=== PATIENT | female | born 1955 | race Caucasian/White ===

== ENCOUNTER → 2017-04-13 18:17 | Outpatient (CLI) | payer BC, SELFPAY ==
[2017-04-16 14:24] LABS: HPV APTIMA, High Risk Negative (Negative)
== END ==
PROVIDERS: Family Provider Family Medicine; PCP Family Medicine; Visit Provider Nurse Practitioner Women's Health
DX: Z12.4 Encounter for screening for malignant neoplasm of cervix (principal)
CPT/HCPCS: 88175; G0145

== ENCOUNTER → 2017-06-29 17:30 | Outpatient (CLI) | payer BC, SELFPAY ==
--- NOTE | 2017-06-29 17:31 | BI_ITS ---
MAMMOGRAPHY - BILATERAL SCREENING REASON FOR EXAM: Female, 61 years old. Routine annual screening examination. PERTINENT HISTORY: Remote left stereotactic breast biopsy. TECHNIQUE: Digital bilateral breast pio (3D mammographic acquisition) in the CC and MLO projections. 2-D mediolateral oblique (MLO) and craniocaudad (CC) views of both breasts were obtained. CAD: Full Field Digital Mammography with Computer Added Detection was performed. COMPARISON: Comparison is made with prior outside examination dated April 20, 2016. FINDINGS: Breast Composition: There are scattered areas of fibroglandular density. There are no dominant masses or suspicious calcifications. No other significant abnormalities are identified. There has been no significant change since the prior study. BI/SCREENING MAMM (CAD), BILAT IMPRESSION: Stable bilateral screening mammogram. Yearly follow-up mammogram recommended. (A) ASSESSMENT CATEGORY: BIRADS Category 1: Negative. A letter regarding these results will be sent to the patient by the facility within 30 days. Approximately 10% of breast cancers are not detected by mammography. A normal mammogram should not delay biopsy of a clinically suspicious abnormality. [id number] Electronically Signed: Konstantin Person MD at 8:14 EDT Tel [phone], Service support ,
== END ==
PROVIDERS: Family Provider Family Medicine; PCP Family Medicine; Visit Provider Nurse Practitioner Women's Health
DX: Z12.31 Encounter for screening mammogram for malignant neoplasm of breast (principal)
CPT/HCPCS: 77063; 77067

== ENCOUNTER → 2018-07-25 | Outpatient (CLI) | payer BC, SELFPAY ==
[2018-07-06 16:02] VITALS: BMI 27.4
--- NOTE | 2018-07-25 16:30 | BI_ITS ---
MAMMOGRAPHY - BILATERAL SCREENING REASON FOR EXAM: Female, 62 years old. Routine annual screening examination. PERTINENT HISTORY: Non-contributory. Remote left stereotactic breast biopsy. TECHNIQUE: Digital bilateral breast miguel (3D mammographic acquisition) in the CC and MLO projections. 2-D mediolateral oblique (MLO) and craniocaudad (CC) views of both breasts were obtained. CAD: Full Field Digital Mammography with Computer Added Detection was performed. COMPARISON: Comparison is made with prior study dated June 29, 2017 and June 20, 2016. FINDINGS: Breast Composition: The breasts are heterogeneously dense, which may obscure small masses. There are no dominant masses or suspicious calcifications. No other significant abnormalities are identified. BI/SCREEN MAMM (CAD) W/MIGUEL BILAT IMPRESSION: Stable bilateral screening mammogram. Yearly follow-up mammogram recommended. (A) ASSESSMENT CATEGORY: BIRADS Category 1: Negative. A letter regarding these results will be sent to the patient by the facility within 30 days. Approximately 10% of breast cancers are not detected by mammography. A normal mammogram should not delay biopsy of a clinically suspicious abnormality. [id number] Electronically Signed: Konstantin Person, at 8:47 EDT , Service support ,
== END | disposition home or self-care (01) ==
LOC: OPBI 16:28
PROVIDERS: Family Provider Family Medicine; PCP Family Medicine; Referring Provider Nurse Practitioner Women's Health; Visit Provider Nurse Practitioner Women's Health
DX: Z12.31 Encounter for screening mammogram for malignant neoplasm of breast (principal)
CPT/HCPCS: 77063; 77067

== ENCOUNTER → 2018-11-28 | Outpatient (CLI) | payer BC, SELFPAY ==
[2018-07-06 16:02] VITALS: BMI 27.4
[2018-11-28 10:35] LABS: Anion Gap 7 (5-15); BUN 12 mg/dL (7-18); Calcium,Total 9.1 mg/dL (8.5-10.1); Chloride 101 mmol/L (98-107); EST Glomerular Filtration Rate 89 mL/min (>60); Est Glom Filt Rate - Afr Amer 107 mL/min (>60); Glucose 99 mg/dL (74-106); Potassium 3.4 mmol/L (3.5-5.1); Sodium Level 140 mmol/L (136-145); Thyroid Stim Hormone (TSH) 2.86 uIU/mL (0.358-3.74)
== END | disposition home or self-care (01) ==
LOC: MTLAB 08:27
PROVIDERS: Family Provider Family Medicine; PCP Family Medicine; Referring Provider Family Medicine; Visit Provider Family Medicine
DX: I10 Essential (primary) hypertension (principal); E03.9 Hypothyroidism, unspecified
CPT/HCPCS: 36415; 80048; 84443

== ENCOUNTER → 2019-07-27 16:07 | Outpatient (CLI) | payer BC, SELFPAY ==
[2018-07-06 16:02] VITALS: BMI 27.4
[2019-07-18 15:04] VITALS: BMI 27.4
--- NOTE | 2019-07-27 16:08 | BI_ITS ---
MAMMOGRAPHY - BILATERAL SCREENING REASON FOR EXAM: Female, 63 years old. Routine annual screening examination. PERTINENT HISTORY: Non-contributory. Remote left stereotactic breast biopsy. TECHNIQUE: Digital bilateral breast miguel (3D mammographic acquisition) in the CC and MLO projections. 2-D mediolateral oblique (MLO) and craniocaudad (CC) views of both breasts were obtained. CAD: Full Field Digital Mammography with Computer Added Detection was performed. COMPARISON: Comparison is made with prior study dated 03/27/2018 and June 29, 2017. FINDINGS: Breast Composition: The breasts are heterogeneously dense, which may obscure small masses. There are no dominant masses or suspicious calcifications. No other significant abnormalities are identified. There has been no significant change since the prior study. BI/SCREEN MAMM (CAD) W/MIGUEL BILAT IMPRESSION: Stable bilateral screening mammogram. Yearly follow-up mammogram recommended. (A) ASSESSMENT CATEGORY: BIRADS Category 2: Benign. A letter regarding these results will be sent to the patient by the facility within 30 days. Approximately 10% of breast cancers are not detected by mammography. A normal mammogram should not delay biopsy of a clinically suspicious abnormality. [id number] Electronically Signed: Konstantin Person, at 8:41 EDT , Service support ,
== END ==
PROVIDERS: Family Provider Family Medicine; PCP Family Medicine; Referring Provider Nurse Practitioner Women's Health; Visit Provider Nurse Practitioner Women's Health
DX: Z12.31 Encounter for screening mammogram for malignant neoplasm of breast (principal)
CPT/HCPCS: 77063; 77067

== ENCOUNTER → 2019-08-14 16:22 | Outpatient (CLI) | payer BC, SELFPAY ==
[2019-07-18 15:04] VITALS: BMI 27.4
[2019-08-14 18:28] LABS: AST(SGOT) 15 U/L (15-37); Alanine Aminotransfer ALT/SGPT 20 U/L (13-56); Albumin, Serum 3.6 g/dL (3.2-5.0); Alkaline Phosphatase 76 U/L (45-117); Anion Gap 7 (5-15); BUN 12 mg/dL (7-18); BUN/Creat Ratio 15.8 RATIO (10-20); Calcium,Total 8.5 mg/dL (8.5-10.1); Chloride 97 mmol/L (98-107); Cholesterol 201 mg/dL (200); Creatinine, Serum 0.76 mg/dL (0.55-1.02); EST Glomerular Filtration Rate 81 mL/min (>60); Est Glom Filt Rate - Afr Amer 98 mL/min (>60); Globulin 3.5 g/dL (2.2-4.2); Glucose 124 mg/dL (74-106); High Density Lipoprotein 43 mg/dL; Potassium 3.1 mmol/L (3.5-5.1); Protein, Total 7.1 g/dL (6.4-8.2); Sodium Level 135 mmol/L (136-145); Thyroid Stim Hormone (TSH) 2.78 uIU/mL (0.358-3.74); Triglycerides 284 mg/dL; Very Low Density Lipoprotein 57 mg/dL (5-40)
== END ==
PROVIDERS: PCP Family Medicine; Referring Provider Family Medicine; Visit Provider Family Medicine
DX: I10 Essential (primary) hypertension (principal); E03.9 Hypothyroidism, unspecified
CPT/HCPCS: 36415; 80053; 80061; 84443

== ENCOUNTER → 2019-09-04 16:46 | Outpatient (CLI) | payer BC, SELFPAY ==
[2019-07-18 15:04] VITALS: BMI 27.4
[2019-09-04 18:26] LABS: Anion Gap 6 (5-15); BUN 12 mg/dL (7-18); BUN/Creat Ratio 18.3 RATIO (10-20); Calcium,Total 8.8 mg/dL (8.5-10.1); Chloride 99 mmol/L (98-107); Creatinine, Serum 0.65 mg/dL (0.55-1.02); EST Glomerular Filtration Rate 97 mL/min (>60); Est Glom Filt Rate - Afr Amer 117 mL/min (>60); Glucose 107 mg/dL (74-106); Potassium 3.3 mmol/L (3.5-5.1); Sodium Level 137 mmol/L (136-145)
== END ==
PROVIDERS: PCP Family Medicine; Referring Provider Family Medicine; Visit Provider Family Medicine
DX: E87.6 Hypokalemia (principal)
CPT/HCPCS: 36415; 80048

== ENCOUNTER → 2019-11-16 10:54 | Outpatient (CLI) | payer BC, SELFPAY ==
[2019-07-18 15:04] VITALS: BMI 27.4
== END ==
LOC: MFPLAB 10:55 → LABSPEC 10:57
PROVIDERS: PCP Family Medicine; Referring Provider Family Medicine; Visit Provider Family Medicine
DX: Z20.828 Contact with and (suspected) exposure to other viral communicable diseases (principal)
CPT/HCPCS: 87635; U0003

== ENCOUNTER → 2020-02-24 08:09 | Outpatient (CLI) | payer BC, SELFPAY ==
[2019-07-18 15:04] VITALS: BMI 27.4
[2020-02-24 09:39] LABS: AST(SGOT) 18 U/L (15-37); Alanine Aminotransfer ALT/SGPT 19 U/L (13-56); Albumin, Serum 3.6 g/dL (3.2-5.0); Alkaline Phosphatase 103 U/L (45-117); Anion Gap 4 (5-15); BUN 11 mg/dL (7-18); BUN/Creat Ratio 14.3 RATIO (10-20); Calcium,Total 8.8 mg/dL (8.5-10.1); Chloride 102 mmol/L (98-107); Cholesterol 175 mg/dL (200); Creatinine, Serum 0.77 mg/dL (0.55-1.02); EST Glomerular Filtration Rate 80 mL/min (>60); Est Glom Filt Rate - Afr Amer 97 mL/min (>60); Globulin 3.7 g/dL (2.2-4.2); Glucose 95 mg/dL (74-106); High Density Lipoprotein 54 mg/dL; Potassium 3.4 mmol/L (3.5-5.1); Protein, Total 7.3 g/dL (6.4-8.2); Sodium Level 138 mmol/L (136-145); Thyroid Stim Hormone (TSH) 3.14 uIU/mL (0.358-3.74); Triglycerides 130 mg/dL; Very Low Density Lipoprotein 26 mg/dL (5-40)
== END ==
PROVIDERS: PCP Family Medicine; Referring Provider Family Medicine; Visit Provider Family Medicine
DX: I10 Essential (primary) hypertension (principal); E03.9 Hypothyroidism, unspecified
CPT/HCPCS: 36415; 80053; 80061; 84443

== ENCOUNTER → 2020-08-16 07:45 | Outpatient (CLI) | payer BC, SELFPAY ==
[2020-07-31 15:29] VITALS: BMI 27.6
--- NOTE | 2020-08-15 16:30 | BI_ITS ---
MAMMOGRAPHY - BILATERAL SCREENING REASON FOR EXAM: Female, 64 years old. Routine annual screening examination. PERTINENT HISTORY: Non-contributory. Remote left stereotactic breast biopsy. TECHNIQUE: Digital bilateral breast miguel (3D mammographic acquisition) in the CC and MLO projections. 2-D mediolateral oblique (MLO) and craniocaudad (CC) views of both breasts were obtained. CAD: Full Field Digital Mammography with Computer Added Detection was performed. COMPARISON: Comparison is made with prior examination of 07/27/2019 and 07/25/2018. FINDINGS: Breast Composition: The breasts are heterogeneously dense, which may obscure small masses. There are no dominant masses or suspicious calcifications. No other significant abnormalities are identified. There has been no significant change since the prior study. BI/SCRN MAMM (CAD)W/MIGUEL BILAT IMPRESSION: Stable bilateral screening mammogram. Yearly follow-up mammogram recommended. (A) ASSESSMENT CATEGORY: BIRADS Category 1: Negative. A letter regarding these results will be sent to the patient by the facility within 30 days. Approximately 10% of breast cancers are not detected by mammography. A normal mammogram should not delay biopsy of a clinically suspicious abnormality. [id number] Electronically Signed: Konstantin Person MD at 8:14 EDT , Service support ,
== END ==
PROVIDERS: PCP Family Medicine; Referring Provider Nurse Practitioner Women's Health; Visit Provider Nurse Practitioner Women's Health
DX: Z12.31 Encounter for screening mammogram for malignant neoplasm of breast (principal)
CPT/HCPCS: 77063; 77067

== ENCOUNTER 2021-04-05 07:52 | Outpatient (CLI) | payer BC, SELFPAY ==
[2021-04-05 08:42] LABS: Absolute Lymphocyte Count 0.82 X10^3/uL (0.83-4.51); Basophil# 0.04 X10^3/uL; Eosinophil# 0.04 X10^3/uL; Hematocrit 36.5 % (37-47); Hemoglobin 12.4 g/dL (12.0-15.0); Lymphocyte # 0.82 X10^3/ul (0.83-4.51); Lymphocyte % 19.5 % (19-41); Mean Corpuscular Volume 85.3 fL (81-99); Mean Platelet Vol. 9.6 fl (6.2-12.0); Monocyte# 0.28 X10^3/uL; Monocyte% 6.7 % (0-10); NRBC Flagged by Analyzer 0 % (0-5); Neutrophil # 3.02 X10^3/uL (2.7-7.7); Neutrophil % 71.6 % (47-70); Platelet Count 235 K/mm3 (150-450); RBC Distribution Width CV 12.2 % (11.6-14.6); RBC Distribution Width SD 37.9 fl (35.1-43.9); Red Blood Count 4.28 M/mm3 (4.2-5.4); White Blood Count 4.2 K/mm3 (4.4-11.0)
[2021-04-05 09:36] LABS: ALB/GLOB Ratio 1.1 RATIO (0.9-2.4); AST(SGOT) 12 U/L (15-37); Alanine Aminotransfer ALT/SGPT 16 U/L (13-56); Albumin, Serum 3.7 g/dL (3.2-5.0); Alkaline Phosphatase 71 U/L (45-117); Anion Gap 5 (5-15); BUN 16 mg/dL (7-18); BUN/Creat Ratio 21.4 RATIO (10-20); Chloride 101 mmol/L (98-107); Cholesterol 189 mg/dL (200); Creatinine, Serum 0.75 mg/dL (0.55-1.02); EST Glomerular Filtration Rate 82 mL/min (>60); Est Glom Filt Rate - Afr Amer 99 mL/min (>60); Globulin 3.3 g/dL (2.2-4.2); Glucose 104 mg/dL (74-106); High Density Lipoprotein 73 mg/dL; Potassium 3.5 mmol/L (3.5-5.1); Sodium Level 135 mmol/L (136-145); Thyroid Stim Hormone (TSH) 2.98 uIU/mL (0.358-3.74); Triglycerides 68 mg/dL; Very Low Density Lipoprotein 14 mg/dL (5-40)
== END 2021-04-05 23:59 | disposition home or self-care (01) ==
LOC: LAB 07:55
PROVIDERS: PCP Registered Nurse; Referring Provider Registered Nurse; Visit Provider Registered Nurse
DX: I10 Essential (primary) hypertension (principal)
CPT/HCPCS: 36415; 80053; 80061; 84443; 85025

== ENCOUNTER → 2021-08-19 | Outpatient (CLI) | payer BC, SELFPAY ==
--- NOTE | 2021-08-19 16:25 | BI_ITS ---
MAMMOGRAPHY - BILATERAL SCREENING REASON FOR EXAM: Female, 65 years old. Routine annual screening examination. PERTINENT HISTORY: Non-contributory. History of prior left stereotactic breast biopsy. TECHNIQUE: Digital bilateral breast miguel (3D mammographic acquisition) in the CC and MLO projections. 2-D mediolateral oblique (MLO) and craniocaudad (CC) views of both breasts were obtained. CAD: Full Field Digital Mammography with Computer Added Detection was performed. COMPARISON: Comparison is made with prior study dated 08/15/2020 and 07/27/2019. FINDINGS: Breast Composition: The breasts are heterogeneously dense, which may obscure small masses. There are no dominant masses or suspicious calcifications. No other significant abnormalities are identified. There has been no significant change since the prior study. BI/SCRN MAMM (CAD)W/MIGUEL BILAT IMPRESSION: Stable bilateral screening mammogram. Yearly follow-up mammogram recommended. (A) ASSESSMENT CATEGORY: BIRADS Category 1: Negative. A letter regarding these results will be sent to the patient by the facility within 30 days. Approximately 10% of breast cancers are not detected by mammography. A normal mammogram should not delay biopsy of a clinically suspicious abnormality. [id number] Electronically Signed: Konstantin Person MD at 8:31 EDT ,
== END | disposition home or self-care (01) ==
LOC: OPBI 08-20 06:53
PROVIDERS: PCP Registered Nurse; Referring Provider Nurse Practitioner Women's Health; Visit Provider Nurse Practitioner Women's Health
DX: Z12.31 Encounter for screening mammogram for malignant neoplasm of breast (principal)
CPT/HCPCS: 77063; 77067

== ENCOUNTER → 2021-08-27 | Outpatient (CLI) | payer BC, SELFPAY ==
--- NOTE | 2021-08-27 15:57 | US_ITS ---
EXAM: US PELVIS TRANSVAGINAL AND US DUPLEX ARTERIAL/VENOUS OF THE PELVIS, COMPLETE CLINICAL INDICATION: cancer screening TECHNIQUE: Transvaginal pelvic ultrasound was performed with grayscale imaging. Transvaginal imaging was used for better evaluation of the endometrium and adnexa. Real-time duplex ultrasound scan of the arterial and venous flow of the pelvis with color Doppler flow and spectral waveform analysis. This report was created using [employer] report generation technology. COMPARISON: None. FINDINGS: UTERUS/CERVIX: The uterus measures 5.6 x 4.9 x 4.5 cm. The endometrial stripe measures 0.5 cm in thickness which is abnormal for patient''s age. Slight amount of fluid in the endometrial cavity. The uterus is retroverted. Small heterogeneous intramural mass measuring 1.8 x 1.8 x 1.7 cm in the fundus the uterus. RIGHT OVARY: Unremarkable. There is normal arterial inflow and venous outflow present in the right ovary. The right ovary measures 2.5 x 1.6 x 1.1 cm. LEFT OVARY: Unremarkable. There is normal arterial inflow and venous outflow present in the left ovary. The left ovary measures 2.9 x 1.5 x 0.9 cm. FREE FLUID: None. BLADDER: Empty bladder which cannot be evaluated with this probe. US/Transvaginal Non- IMPRESSION: 1. The uterus measures 5.6 x 4.9 x 4.5 cm. The endometrial stripe measures 0.5 cm in thickness which is abnormal for patient''s age. Findings could be due to endometrial hyperplasia or less likely endometrial cancer. Consider gynecology consultation. 2. Small intramural leiomyoma measuring 1.8 x 1.8 x 1.7 cm in the fundus of the uterus. 3. Slight fluid in the endometrial cavity. Electronically Signed: Chris Ibanez MD at 6:40 EDT ,
--- NOTE | 2021-08-27 15:57 | US_ITS ---
EXAM: US PELVIS TRANSVAGINAL AND US DUPLEX ARTERIAL/VENOUS OF THE PELVIS, COMPLETE CLINICAL INDICATION: cancer screening TECHNIQUE: Transvaginal pelvic ultrasound was performed with grayscale imaging. Transvaginal imaging was used for better evaluation of the endometrium and adnexa. Real-time duplex ultrasound scan of the arterial and venous flow of the pelvis with color Doppler flow and spectral waveform analysis. This report was created using [employer] report generation technology. COMPARISON: None. FINDINGS: UTERUS/CERVIX: The uterus measures 5.6 x 4.9 x 4.5 cm. The endometrial stripe measures 0.5 cm in thickness which is abnormal for patient''s age. Slight amount of fluid in the endometrial cavity. The uterus is retroverted. Small heterogeneous intramural mass measuring 1.8 x 1.8 x 1.7 cm in the fundus the uterus. RIGHT OVARY: Unremarkable. There is normal arterial inflow and venous outflow present in the right ovary. The right ovary measures 2.5 x 1.6 x 1.1 cm. LEFT OVARY: Unremarkable. There is normal arterial inflow and venous outflow present in the left ovary. The left ovary measures 2.9 x 1.5 x 0.9 cm. FREE FLUID: None. BLADDER: Empty bladder which cannot be evaluated with this probe. US/Pelvic (Non ) IMPRESSION: 1. The uterus measures 5.6 x 4.9 x 4.5 cm. The endometrial stripe measures 0.5 cm in thickness which is abnormal for patient''s age. Findings could be due to endometrial hyperplasia or less likely endometrial cancer. Consider gynecology consultation. 2. Small intramural leiomyoma measuring 1.8 x 1.8 x 1.7 cm in the fundus of the uterus. 3. Slight fluid in the endometrial cavity. Electronically Signed: Chris Ibanze MD at 6:40 EDT ,
== END | disposition home or self-care (01) ==
PROVIDERS: PCP Registered Nurse; Referring Provider Nurse Practitioner Women's Health; Visit Provider Nurse Practitioner Women's Health
DX: Z12.89 Encounter for screening for malignant neoplasm of other sites (principal); Z80.9 Family history of malignant neoplasm, unspecified
CPT/HCPCS: 76830; 76856

== ENCOUNTER → 2021-09-04 | Outpatient (CLI) | payer BC, SELFPAY ==
--- NOTE | 2021-09-04 11:00 | EMB_PTH ---
PATIENT: FRAN SHEARER LOC: [facility] U#:[id number] AGE/SX: 66/F ROOM: RE09/04/[address]: DANYA Cross : 1955 BED: DIS: 09/04/2021 SPEC #: [id number] RECD: 09/04/21 13:45 STATUS: TRINIDAD PATTEN #: [id number] JASSI: 09/04/21 11:[address]: Natalie Beltran NP DEPT: SURGICAL PATHOLOGY RECD BY: Makenzie Diaz ENTERED: 09/04/21 14:01 SP TYPE: ENDOM BX/C CRISTEL DR: DANYA Ruiz Tissues: Endometrium, NOS Procedures: Surgery Specimen Level IV HEADER OPERATION: Endometrial biopsy PRE-OP DIAGNOSIS: Thickened endometrium TISSUE SUBMITTED: Endometrial biopsy MICROSCOPIC DIAGNOSIS Endometrial biopsy: Superficial fragment of benign endometrial tissue. See comment. FRANSICO:romain 09/05/2021 COMMENT Clinical correlation and appropriate follow up are necessary. MICROSCOPIC DESCRIPTION Slides are reviewed. GROSS DESCRIPTION Received is one container labeled with the patient's name and not further designated. The specimen consists of multiple irregular fragments of mario mucoid tissue that in aggregate measure 1 x 0.5 x 0.1 cm. The specimen is totally submitted in one cassette. / SJ:romain 09/04/2021 TC:5 CPT: 55763
== END | disposition home or self-care (01) ==
LOC: LABSPEC 13:45
PROVIDERS: PCP Registered Nurse; Referring Provider Nurse Practitioner Women's Health; Visit Provider Nurse Practitioner Women's Health
DX: R93.89 Abnormal findings on diagnostic imaging of other specified body structures (principal)
CPT/HCPCS: 88305

== ENCOUNTER → 2021-09-12 | Outpatient (CLI) | payer BC, SELFPAY ==
--- NOTE | 2021-09-12 11:00 | MRI_ITS ---
STUDY: BILATERAL BREAST MR WITHOUT AND WITH CONTRAST REASON FOR EXAM: Female, 66 years old. Breast cancer screening. History of remote left stereotactic breast biopsy. TECHNIQUE: Multi-sequence multi-echo imaging of both breasts was performed with a dedicated breast coil. T1-weighted and T2-weighted images were performed before the administration of contrast. T1-weighted images were also performed after the intravenous administration of 13 mL of [id number] contrast. COMPARISON: Prior mammograms dated 08/19/2021, 08/15/2020 and 07/27/2019. FINDINGS: RIGHT BREAST: The breast tissue is scattered fibroglandular densities with mild background enhancement. There are no abnormal enhancing masses or areas of non-mass enhancement in the right breast. LEFT BREAST: The breast tissue is scattered fibroglandular densities with mild background enhancement. There are no abnormal enhancing masses or areas of non-mass enhancement in the left breast. There are no enlarged or abnormal lymph nodes. There is no abnormality in the visualized regions of the chest or liver. MRI/Breast Bilateral W/O and W IMPRESSION: Mild background enhancement bilaterally. No other abnormality present. Yearly follow-up screening mammogram recommended. CATEGORY: BIRADS Category 2: Benign. A letter regarding these results will be sent to the patient by the facility within 30 days. Electronically Signed: Ash Robb, at 9:50 EDT ,
[2021-09-12 15:06] LABS: CREATININE FINGERSTICK < 0.9 mg/dL (0.55-1.02); EGFR FINGERSTICK > 60.0000 mL/min (>60)
== END | disposition home or self-care (01) ==
PROVIDERS: PCP Registered Nurse; Visit Provider Nurse Practitioner Women's Health
DX: Z15.89 Genetic susceptibility to other disease (principal); Z84.81 Family history of carrier of genetic disease; Z80.9 Family history of malignant neoplasm, unspecified
CPT/HCPCS: 77049; A9575; A4216; C8908

== ENCOUNTER → 2021-11-14 | Outpatient (CLI) | payer BC, SELFPAY ==
[2021-11-14 10:17] LABS: Cholesterol 187 mg/dL (200); High Density Lipoprotein 58 mg/dL; Triglycerides 120 mg/dL; Very Low Density Lipoprotein 24 mg/dL (5-40)
== END | disposition home or self-care (01) ==
LOC: MTLAB 07:05
PROVIDERS: PCP Nurse Practitioner Family; Referring Provider Nurse Practitioner Family; Visit Provider Nurse Practitioner Family
DX: Z13.220 Encounter for screening for lipoid disorders (principal)
CPT/HCPCS: 36415; 80061

== ENCOUNTER 2021-12-12 08:09 | Day surgery (SDC) | payer BC, SELFPAY ==
[2021-12-12] VITALS (7 sets, daily range): BP systolic 115–134; BP diastolic 60–73; PULSE 62–84; RESP 12–16; TEMP 36.1–36.8; O2SAT 98–100; BMI 27.1
[2021-12-12] MEDS: Lactated Ringers 1,000 ML 15 ML IV (08:47)
--- NOTE | 2021-12-12 09:21 | H&P.OPEN ---
HPI - General [facility] Narrative FRAN SHEARER, is a 66 F who presents for screening colonoscopy. Her last colonoscopy was 10 years ago and was normal. Patient does have family history of multiple types of cancer but not colon cancer. 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 She denies any abdominal pain or blood in the stool. [facility] Medical History (Updated 12/08/21 @ 16:20 by Marilyn Townsend) Arthritis Difficulty swallowing Easy bruising HTN (hypertension) Hypothyroid Leg cramps Non-smoker Post-menopausal Wears glasses Home Medications hydrochlorothiazide 25 mg tablet 25 mg PO DAILY HTN 90 days ##90 04/13/17 [History Last Taken 12/12/21] levothyroxine 50 mcg tablet 50 mcg PO DAILY THYROID 90 days ##90 04/13/17 [History Last Taken Unknown] mecobalamin (vitamin B12) 1,000 mcg disintegrating tablet,sublingual 1,000 mcg sublingual QDAY 04/13/17 [History Last Taken Unknown] calcium citrate 200 mg (950 mg) tablet 200 mg PO Q4D SUPPLEMENT 07/06/18 [History Last Taken Unknown] zinc 50 mg tablet 50 mg PO Q4D SUPPLEMENT 07/31/20 [History Last Taken Unknown] biotin 1 mg capsule 1 mg PO DAILY 08/13/21 [History Last Taken Unknown] ferrous sulfate 325 mg (65 mg iron) tablet (Feosol) 325 mg PO .q 4 days 08/13/21 [History Last Taken Unknown] losartan 25 mg tablet 25 mg PO DAILY HTN 08/13/21 [History Last Taken 12/12/21] magnesium chloride 64 mg (magnesium chloride) tablet 250 mg PO DAILY SUPPLEMENT 08/13/21 [History Last Taken Unknown] multivitamin,cy-wsio-smezwxkh (Complete Multivitamin tablet) 1 tab PO .q 4 days 08/13/21 [History Last Taken Unknown] Allergy/AdvReac Type Severity Reaction Status Date / Time lisinopril AdvReac Intermediate Chest Verified 12/12/21 08:45 tightness Family History (Updated 11/07/21 @ 11:40 by Leila Deleon) Father Diabetes Mother Hypertension Cancer gallbladder Grandfather Diabetes Aunt Cancer gallbladder Aunt Cancer multiple myeloma Sister Cancer renal Unknown Breast cancer associated with mutation in ENRIKE gene Surgical History (Updated 11/07/21 @ 11:39 by Leila Deleon) H/O tubal ligation History of colonoscopy History of D&C Social History Smoking Status: Never smoker second hand exposure: No alcohol intake: never what type of physical activity do you participate in: none additional social history: Lai Chevia Past Medical/Surgical History Planned Operation Planned Operative Procedure/s: COLONOSCOPY Previous Hospitalizations/Surgeries HX Hospitalizations: No Any Problems With Anesthesia: No You/Your Family Experience Fever (Hyperthermia) With Anes: No Cholinesterase deficiency: No Cardiovascular Hx Hypertension: Yes (PER PT CONTROLLED ON MEDS) Respiratory Hx Sleep Apnea: No Hx Respiratory Tract Infection/Cold (presently): No Do You Snore Loudly (louder than talking or can be heard): No Do You Often Feel Tired/ Fatigued/ Sleepy Dring Daytime?: No Has Anyone Observed You Stop Breathing During Sleep?: No Result (for STOP score): Negative Smoking Status: Never smoker Neurological Does patient have nerve stimulator: No Reproduction : No Miscellaneous Recent Exposure to Contagious Disease: No Allergies lisinopril Adverse Reaction (Intermediate, Verified 12/12/21 08:45) Chest tightness cough Discharge Is Pt Admitted From a [facility], or a Detention: No Who Could Help: FAMILY After D/C, Where Do you Plan to Go: Return Home Vital Signs Vital Signs Vital Signs: 12/12/21 08:47 12/12/21 08:47 Temperature 98.2 F Temperature Source Temporal Pulse Rate 62 Respiratory Rate 12 Respiratory Pattern Normal Blood Pressure 134/73 H Blood Pressure Mean 93 Blood Pressure Source Monitor Blood Pressure Position Semi-Fowlers Blood Pressure Location Right Arm Pulse Ox 100 Oxygen Delivery Method Room Air Weight Weight: 143 lb 4.807 oz Body Mass Index (BMI) 27.1 Physical Exam Const alert and oriented x3 Resp normal respiratory effort and normal air movement Cardio regular rate and regular rhythm GI soft to palpation, non-tender and non-distended Assessment & Plan Assessment/Plan (1) Encounter for screening for malignant neoplasm of colon: PLAN: I explained endoscopy in detail to the patient. I explained the risks including but not limited to stroke or heart attack with anesthesia, perforation of the GI tract, bleeding, infection. I explained that any of these could necessitate further emergency surgery. The patient understands and all questions were answered sufficiently. The patient wishes to proceed with procedure. Urbano Mendosa MD Pager: [facility] [address] [place] [address], [address] [place] [address] Office: Surgery Risks - Colonoscopy Risks Include but are not Limited To: Risks include but are not limited to: Bleeding, perforation requiring further surgery, inability to complete colonoscopy requiring barium enema.
--- NOTE | 2021-12-12 09:47 | OP.CCLET_ITS ---
12/12/2021 Cassandra Tim Re : Colonoscopy procedure for Esthela Corey Dear Bubba This procedure was performed on Sunday, December 12, 2021. My impressions and recommendations are as follows: Impressions : - The entire examined colon is normal on direct and retroflexion views. - No specimens collected. Recommendations : - Discharge patient to home. - Resume previous diet. - Continue present medications. - Repeat colonoscopy in 5 years for surveillance. My findings are described in the full procedure note, which is enclosed. If I can be of further assistance, please feel free to contact me at Doctor phone number(s): , Work: . Sincerely, Urbano Mendosa MD 12/12/2021 9:46:32 AM This report has been signed electronically.
--- NOTE | 2021-12-12 09:47 | OP.COLON_ITS ---
Patient Name: Esthela Corey Procedure Date: 12/12/2021 9:23 AM Date of : 1955 Age: 66 Procedure: Colonoscopy Indications: Screening for colorectal malignant neoplasm Providers: Urbano Mendosa MD Medicines: Monitored Anesthesia Care Patient Profile: This is a 66 year old female. Refer to note in patient chart for documentation of history and physical. Last Colonoscopy: 10 years ago. Complications: No immediate complications. Procedure: Pre-Anesthesia Assessment: - Prior to the procedure, a History and Physical was performed, and patient medications and allergies were reviewed. The patient's tolerance of previous anesthesia was also reviewed. The risks and benefits of the procedure and the sedation options and risks were discussed with the patient. All questions were answered, and informed consent was obtained. Prior Anticoagulants: The patient has taken no previous anticoagulant or antiplatelet agents. After reviewing the risks and benefits, the patient was deemed in satisfactory condition to undergo the procedure. After I obtained informed consent, the scope was passed under direct vision. Throughout the procedure, the patient's blood pressure, pulse, and oxygen saturations were monitored continuously. The colonoscope was introduced through the anus and advanced to the cecum, identified by appendiceal orifice and ileocecal valve. The colonoscopy was performed without difficulty. The patient tolerated the procedure well. The quality of the bowel preparation was good. Scope In: 9:32:47 AM Scope Withdrawal Time 0 hours 6 minutes 26 seconds Scope Out: 9:43:30 AM Total Procedure Duration Time 0 hours 10 minutes 43 seconds Findings: The entire examined colon appeared normal on direct and retroflexion views. Impression: - The entire examined colon is normal on direct and retroflexion views. - No specimens collected. Recommendation: - Discharge patient to home. - Resume previous diet. - Continue present medications. - Repeat colonoscopy in 5 years for surveillance. Procedure Code(s): --- Professional --- 02085, Colonoscopy, flexible; diagnostic, including collection of specimen(s) by brushing or washing, when performed (separate procedure) Diagnosis Code(s): --- Professional --- Z12.11, Encounter for screening for malignant neoplasm of colon CPT copyright 2017 [employer]. All rights reserved. The codes documented in this report are preliminary and upon security solutions engineer review may be revised to meet current compliance requirements. Urbano Mendosa MD 12/12/2021 9:46:32 AM This report has been signed electronically. Number of Addenda: 0 Note Initiated On: 12/12/2021 9:23 AM
== END 2021-12-12 10:36 | disposition home or self-care (01) ==
LOC: EN 08:12 → AC 08:14
PROVIDERS: PCP Nurse Practitioner Family; Referring Provider Nurse Practitioner Family; Visit Provider Surgery
PROC: 0DJD8ZZ Inspection of Lower Intestinal Tract, Via Natural or Artificial Opening Endoscopic (ICD-10-PCS; CPT 45378; principal; 2021-12-12 09:10)
DX: Z12.11 Encounter for screening for malignant neoplasm of colon (principal); I10 Essential (primary) hypertension; E03.9 Hypothyroidism, unspecified; Z79.899 Other long term (current) drug therapy
CPT/HCPCS: G0121; J7120; J2405

== ENCOUNTER → 2022-05-23 | Outpatient (CLI) | payer BC, SELFPAY ==
[2022-05-23 08:07] LABS: Absolute Lymphocyte Count 0.83 X10^3/uL (0.83-4.51); Absolute Neutrophil Count 2.7 X10^3/uL (2.0-7.7); Basophil# 0.03 X10^3/uL; Basophil% 0.8 % (0-1); Eosinophil# 0.05 X10^3/uL; Eosinophils% 1.3 % (0-5); Hematocrit 37.7 % (37-47); Hemoglobin 12.5 g/dL (12.0-15.0); Lymphocyte # 0.83 X10^3/ul (0.83-4.51); Lymphocyte % 20.9 % (19-41); Mean Corp Hgb Conc 33.2 g/dL (32-36); Mean Corpuscular Hgb 29.1 pg (27.0-32.0); Mean Corpuscular Volume 87.9 fL (81-99); Monocyte# 0.35 X10^3/uL; Monocyte% 8.8 % (0-10); NRBC Flagged by Analyzer 0 % (0-5); Neutrophil # 2.71 X10^3/uL (2.7-7.7); Neutrophil % 67.9 % (47-70); Platelet Count 248 K/mm3 (150-450); RBC Distribution Width CV 12.1 % (11.6-14.6); Red Blood Count 4.29 M/mm3 (4.2-5.4)
[2022-05-23 08:43] LABS: ALB/GLOB Ratio 1.1 RATIO (0.9-2.4); AST(SGOT) 13 U/L (15-37); Alanine Aminotransfer ALT/SGPT 18 U/L (13-56); Albumin, Serum 3.6 g/dL (3.2-5.0); Alkaline Phosphatase 73 U/L (45-117); Anion Gap 5 (5-15); BUN 15 mg/dL (7-18); BUN/Creat Ratio 20.4 RATIO (10-20); Calcium,Total 9.1 mg/dL (8.5-10.1); Chloride 102 mmol/L (98-107); Cholesterol 198 mg/dL (200); Creatinine, Serum 0.74 mg/dL (0.55-1.02); EST Glomerular Filtration Rate 84 mL/min (>60); Est Glom Filt Rate - Afr Amer 101 mL/min (>60); Globulin 3.2 g/dL (2.2-4.2); Glucose 102 mg/dL (74-106); High Density Lipoprotein 77 mg/dL; Potassium 3.5 mmol/L (3.5-5.1); Protein, Total 6.8 g/dL (6.4-8.2); Sodium Level 136 mmol/L (136-145); Thyroid Stim Hormone (TSH) 2.68 uIU/mL (0.358-3.74); Triglycerides 72 mg/dL; Very Low Density Lipoprotein 14 mg/dL (5-40)
[2022-05-25 18:32] LABS: Hemoglobin A1c 4.9 % (3.8-5.6)
== END | disposition home or self-care (01) ==
LOC: LAB 07:36
PROVIDERS: PCP Nurse Practitioner Family; Referring Provider Nurse Practitioner Family; Visit Provider Nurse Practitioner Family
DX: I10 Essential (primary) hypertension (principal); E03.9 Hypothyroidism, unspecified; R73.01 Impaired fasting glucose; Z13.220 Encounter for screening for lipoid disorders
CPT/HCPCS: 36415; 80053; 80061; 83036; 84439; 84443; 85025

== ENCOUNTER → 2022-08-26 | Outpatient (CLI) | payer BC, MEDICARE, SELFPAY ==
--- NOTE | 2022-08-25 16:48 | BI_ITS ---
MAMMOGRAPHY - BILATERAL SCREENING 3-D TOMOSYNTHESIS REASON FOR EXAM: Female, 67 years old. Routine screening PERTINENT HISTORY: No significant family history. TECHNIQUE: 2-D mammograms and 3-D Tomosynthesis of the breast (s) were performed. CAD was performed. COMPARISON: 08/15/2020 FINDINGS: The breast composition is composed of scattered fibroglandular density. Scattered benign calcifications are seen. No dense spiculated masses or suspicious microcalcifications are identified. No architectural distortion is identified. There is no skin thickening or retraction. There has been no significant change since the prior study. BI/SCRN MAMM (CAD)W/MIGUEL BILAT IMPRESSION: No mammographic signs of malignancy. Routine yearly mammograms recommended. ASSESSMENT CATEGORY: BIRADS Category 1: Negative. A letter regarding these results will be sent to the patient by the facility within 30 days. FOLLOW UP RECOMMENDATION: Yearly follow up mammogram recommended. (A) Approximately 10% of breast cancers are not detected by mammography. A normal mammogram should not delay biopsy of a clinically suspicious abnormality. Electronically Signed: Greg Nunez MD at 18:41 EDT ,
== END | disposition home or self-care (01) ==
LOC: OPBI 07:03
PROVIDERS: PCP Nurse Practitioner Family; Referring Provider Nurse Practitioner Women's Health; Visit Provider Nurse Practitioner Women's Health
DX: Z12.31 Encounter for screening mammogram for malignant neoplasm of breast (principal)
CPT/HCPCS: 77063; 77067

== ENCOUNTER → 2023-03-16 | Outpatient (CLI) | payer BC, SELFPAY ==
--- NOTE | 2023-03-16 13:47 | MRI_ITS ---
STUDY: BILATERAL BREAST MR WITHOUT AND WITH CONTRAST REASON FOR EXAM: Female, 67 years old. 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 History of stereotactic biopsy. TECHNIQUE: Multi-sequence multi-echo imaging of both breasts was performed with a dedicated breast coil. T1-weighted and T2-weighted images were performed before the administration of contrast. T1-weighted images were also performed after the intravenous administration of 13 cc of Clariscan contrast. COMPARISON: Bilateral mammograms dated 08/25/2022, bilateral mammograms 08/19/2021 and prior breast MR dated 09/12/2021. FINDINGS: RIGHT BREAST: Scattered fibroglandular densities with moderate background enhancement unchanged. No abnormal enhancing masses or areas of non-mass enhancement in the right breast. LEFT BREAST: Scattered fibroglandular densities with moderate background enhancement unchanged. No abnormal enhancing masses or areas of non-mass enhancement in the left breast. No enlarged or abnormal lymph nodes. No abnormality in the visualized regions of the chest or liver. MRI/Breast Bilateral W/O and W IMPRESSION: Stable scattered fibroglandular densities with moderate background enhancement. No other abnormality in either breast. Alternating bilateral mammogram and breast MRI with contrast, given the patient''s history, would be appropriate. CATEGORY: BIRADS Category 2: Benign. A letter regarding these results will be sent to the patient by the facility within 30 days. Electronically Signed: Ash Robb MD at 16:17 EST ,
[2023-03-16 14:17] LABS: CREATININE FINGERSTICK < 1.0 mg/dL (0.55-1.02); EGFR FINGERSTICK > 60.0000 mL/min (>60)
== END | disposition home or self-care (01) ==
LOC: MRI 13:26
PROVIDERS: PCP Family Medicine; Referring Provider Nurse Practitioner Women's Health; Visit Provider Nurse Practitioner Women's Health
DX: Z15.89 Genetic susceptibility to other disease (principal)
CPT/HCPCS: 77049; A9575; C8908

== ENCOUNTER → 2023-09-01 | Outpatient (CLI) | payer BC, MEDICARE, SELFPAY ==
--- NOTE | 2023-09-01 07:32 | US_ITS ---
HISTORY: RUQ pain, concern for gallbladder pathology. TECHNIQUE: Johnston scale and color doppler imaging was performed of the right upper quadrant. 86 images. COMPARISON: None. FINDINGS: LIVER: 13 cm in length. Heterogeneous echotexture without focal lesion demonstrated. No intrahepatic ductal dilatation. MAIN PORTAL VEIN: Patent with flow in the appropriate direction. COMMON BILE DUCT: 3 mm in diameter. GALLBLADDER: 3 x 4 x 4 mm polyp identified. No shadowing gallstones. 2 mm wall thickness. No pericholecystic fluid. Sonographic Paris sign negative. PANCREAS: Visualized proximal portion unremarkable. RIGHT KIDNEY: 9.7 cm in length with a cortical thickness of 1.8 cm. No hydronephrosis or gross renal mass demonstrated. US/Abdomen Limited IMPRESSION: Heterogeneous liver from hepatic steatosis or other hepatocellular disease. 4 mm gallbladder polyp. Recommend 12 month follow-up. No sonographic evidence of cholelithiasis. Electronically Signed: Melita Jean MD at 10:26 EDT ,
[2023-09-01 09:32] LABS: Absolute Lymphocyte Count 0.75 X10^3/uL (0.83-4.51); Absolute Neutrophil Count 2.2 X10^3/uL (2.0-7.7); Basophil# 0.02 X10^3/uL; Basophil% 0.6 % (0-1); Eosinophil# 0.04 X10^3/uL; Eosinophils% 1.2 % (0-5); Hematocrit 35.7 % (37-47); Hemoglobin 12.3 g/dL (12.0-15.0); Lymphocyte # 0.75 X10^3/ul (0.83-4.51); Lymphocyte % 22.7 % (19-41); Mean Corp Hgb Conc 34.5 g/dL (32-36); Mean Corpuscular Hgb 29.6 pg (27.0-32.0); Mean Corpuscular Volume 85.8 fL (81-99); Mean Platelet Vol. 9.9 fl (6.2-12.0); Monocyte# 0.26 X10^3/uL; Monocyte% 7.9 % (0-10); NRBC Flagged by Analyzer 0 % (0-5); Neutrophil # 2.22 X10^3/uL (2.7-7.7); Neutrophil % 67.3 % (47-70); Platelet Count 222 K/mm3 (150-450); RBC Distribution Width CV 12.6 % (11.6-14.6); RBC Distribution Width SD 39.2 fl (35.1-43.9); Red Blood Count 4.16 M/mm3 (4.2-5.4); White Blood Count 3.3 K/mm3 (4.4-11.0)
[2023-09-01 09:58] LABS: Vitamin D,25 Hydroxy 34.1 ng/mL
[2023-09-01 10:00] LABS: ALB/GLOB Ratio 1.1 RATIO (0.9-2.4); AST(SGOT) 13 U/L (15-37); Alanine Aminotransfer ALT/SGPT 18 U/L (13-56); Albumin, Serum 3.5 g/dL (3.2-5.0); Alkaline Phosphatase 74 U/L (45-117); Anion Gap 5 (5-15); BUN 12 mg/dL (7-18); BUN/Creat Ratio 16.7 RATIO (10-20); Calcium,Total 8.7 mg/dL (8.5-10.1); Chloride 101 mmol/L (98-107); Cholesterol 188 mg/dL (200); Creatinine, Serum 0.72 mg/dL (0.55-1.02); EST Glomerular Filtration Rate 85 mL/min (>60); Est Glom Filt Rate - Afr Amer 103 mL/min (>60); Globulin 3.1 g/dL (2.2-4.2); Glucose 103 mg/dL (74-106); High Density Lipoprotein 69 mg/dL; Potassium 3.6 mmol/L (3.5-5.1); Protein, Total 6.6 g/dL (6.4-8.2); Sodium Level 136 mmol/L (136-145); Triglycerides 72 mg/dL; Very Low Density Lipoprotein 14 mg/dL (5-40)
== END | disposition home or self-care (01) ==
PROVIDERS: PCP Family Medicine; Referring Provider Family Medicine; Visit Provider Family Medicine
DX: Z00.00 Encounter for general adult medical examination without abnormal findings (principal); Z13.220 Encounter for screening for lipoid disorders; Z13.1 Encounter for screening for diabetes mellitus; Z78.0 Asymptomatic menopausal state; R10.11 Right upper quadrant pain; K82.4 Cholesterolosis of gallbladder; K76.89 Other specified diseases of liver
CPT/HCPCS: 36415; 76705; 80053; 80061; 82306; 85025

== ENCOUNTER → 2023-09-16 | Outpatient (CLI) | payer BC, MEDICARE, SELFPAY ==
--- NOTE | 2023-09-16 16:17 | BI_ITS ---
MAMMOGRAPHY - BILATERAL SCREENING 3-D TOMOSYNTHESIS REASON FOR EXAM: Female, 68 years old. Screening for breast cancer PERTINENT HISTORY: No significant family history. TECHNIQUE: 2-D mammograms and 3-D Tomosynthesis of the breast (s) were performed. CAD was performed. COMPARISON: 08/25/2022 FINDINGS: The breast composition is composed of scattered fibroglandular density. Scattered benign calcifications are seen. No dense spiculated masses or suspicious microcalcifications are identified. No architectural distortion is identified. There is no skin thickening or retraction. There has been no significant change since the prior study. BI/SCRN MAMM (CAD)W/MIGUEL BILAT IMPRESSION: No mammographic signs of malignancy. Routine yearly mammograms recommended. ASSESSMENT CATEGORY: BIRADS Category 1: Negative. A letter regarding these results will be sent to the patient by the facility within 30 days. FOLLOW UP RECOMMENDATION: Yearly follow up mammogram recommended. (A) Approximately 10% of breast cancers are not detected by mammography. A normal mammogram should not delay biopsy of a clinically suspicious abnormality. Electronically Signed: Jose D Salazar MD at 13:51 EDT ,
--- NOTE | 2023-09-16 16:17 | BD_ITS ---
STUDY: DUAL ENERGY X-RAY ABSORPTIOMETRY / DXA REASON FOR EXAM: Female, 68 years old. Screening for osteoporosis TECHNIQUE: Bone Mineral Density (BMD) measurements of lumbar spine and bilateral hips were obtained. COMPARISON: None. FINDINGS: Lumbar Spine (L1-L4): g/cm2 (0.865) / T-score (-1.0) / Z-score (0.9) Findings are suggestive of normal bone density with a low fracture risk. Left Femur Total: g/cm2 (0.948) / T-score (0.1) / Z-score (1.5) Left Femoral Neck: g/cm2 (0.816) / T-score (-0.3) / Z-score (1.4) Right Femur Total: g/cm2 (0.930) / T-score (-0.1) / Z-score (1.3) Right Femoral Neck: g/cm2 (0.714) / T-score (-1.2) / Z-score (0.5) BD/Dexa Bone Density Study IMPRESSION: The patient is considered osteopenic as outlined below according to World Jj Organization (WHO) criteria with a low fracture risk. Reference Information: The T-score is the number of standard deviations above or below the standard which is normal for young adults at their peak bone mineral density. The World Health Organization (WHO) interprets the T-scores as follows: Above -1 Normal bone density Between -1 and -2.5 Osteopenia Equal to / or below -2.5 Osteoporosis As a practical clinical guideline, osteopenia may be graded as follows: Mild -1 through -1.5 Moderate -1.6 through -2.0 Severe -2.1 through -2.4 The Z-score is the number of standard deviations above or below age-matched controls. A Z-score of less than -1.5 would be considered abnormal. References: 1. NIH Osteoporosis and Related Bone Diseases www osteo.org 2. International Society for Clinical Densitometry www iscd.org 3. National Osteoporosis Foundation www nof.org Electronically Signed: Konstantin Person MD at 15:52 EDT ,
== END | disposition home or self-care (01) ==
LOC: OPBD 16:17
PROVIDERS: PCP Family Medicine; Referring Provider Nurse Practitioner Women's Health; Visit Provider Nurse Practitioner Women's Health
DX: Z12.31 Encounter for screening mammogram for malignant neoplasm of breast (principal); Z13.820 Encounter for screening for osteoporosis
CPT/HCPCS: 77063; 77067; 77080

== ENCOUNTER → 2024-02-25 | Outpatient (CLI) | payer MEDICARE, OTHER, SELFPAY ==
[2024-02-25 12:30] LABS: Vitamin D,25 Hydroxy 30.4 ng/mL
== END | disposition home or self-care (01) ==
LOC: MFPLAB 10:29
PROVIDERS: PCP Family Medicine; Referring Provider Family Medicine; Visit Provider Family Medicine
DX: E03.9 Hypothyroidism, unspecified (principal); M85.80 Other specified disorders of bone density and structure, unspecified site
CPT/HCPCS: 36415; 82306; 84443

== ENCOUNTER → 2024-03-20 | Outpatient (CLI) | payer MEDICARE, OTHER, SELFPAY ==
--- NOTE | 2024-03-20 11:08 | MRI_ITS ---
PROCEDURE: BREAST BILATERAL W/O AND W REASON FOR EXAM: High-risk screening breast MRI. TECHNIQUE: Bilateral breast MRI using a dedicated bilateral breast coil before and following intravenous contrast. Images reviewed with subtraction and [employer]. COMPARISON: Correlation made to prior mammograms most recently from 2023. FINDINGS: Amount of Fibroglandular Tissue: Scattered fibroglandular tissue. Background Parenchymal Enhancement: Moderate. This may decrease the sensitivity of breast MRI. RIGHT Breast: No suspicious mass or non-mass enhancement. LEFT Breast: No suspicious mass or non-mass enhancement. Other Findings: No suspicious axillary or internal mammary lymph nodes. Visualized portions of the thoracic and abdominal viscera are unremarkable. MRI/Breast Bilateral W/O and W IMPRESSION: No MR evidence of malignancy in either breast. OVERALL BI-RADS CATEGORY: 1 [facility]
== END | disposition home or self-care (01) ==
LOC: MRI 11:02
PROVIDERS: PCP Family Medicine; Referring Provider Nurse Practitioner Women's Health; Visit Provider Nurse Practitioner Women's Health
DX: R92.1 Mammographic calcification found on diagnostic imaging of breast (principal); Z15.89 Genetic susceptibility to other disease; Z80.9 Family history of malignant neoplasm, unspecified; Z84.81 Family history of carrier of genetic disease
CPT/HCPCS: 77049; A9575; A4216; C8908

== ENCOUNTER → 2024-10-13 | Outpatient (CLI) | payer MEDICARE, OTHER, SELFPAY ==
--- NOTE | 2024-10-13 10:45 | BI_ITS ---
EXAM: SCRN MAMM (CAD)W/MIGUEL BILAT DATE: 10/13/2024 CLINICAL HISTORY: F, Age 69 y/o , BREAST CANCER SCREENING TECHNIQUE: Procedure Code: [id number] Modality: MG Procedure: SCRN MAMM (CAD)W/MIGUEL BILAT COMPARISON: Prior exam(s) were compared FINDINGS: TISSUE DENSITY: The breasts are heterogeneously dense, which may obscure small masses. Bilateral Breast Mammographic Findings: Left breast: There is an irregular mass in the upper-outer left breast mid depth. Recommend additional imaging with spot compression views and limited ultrasound scanning the upper-outer left breast. Right breast: No suspicious masses, calcifications or other abnormalities are identified. BI/SCRN MAMM (CAD)W/MIGUEL BILAT IMPRESSION: Incomplete evaluation. Additional diagnostic imaging is recommended of the lef t breast as described above. OVERALL FINAL ASSESSMENT BI-RADS 0: INCOMPLETE - NEED ADDITIONAL IMAGING EVALUATION. RECOMMENDATION: Additional Views obtained/call backs A letter with findings and recommendations will be mailed to the patient. Reading Location: [id number]
== END | disposition home or self-care (01) ==
LOC: OPBI 10:24
PROVIDERS: PCP Family Medicine; Referring Provider Nurse Practitioner Women's Health; Visit Provider Nurse Practitioner Women's Health
DX: Z12.31 Encounter for screening mammogram for malignant neoplasm of breast (principal)
CPT/HCPCS: 77063; 77067

== ENCOUNTER → 2024-10-19 | Outpatient (CLI) | payer MEDICARE, OTHER, SELFPAY ==
--- NOTE | 2024-10-19 12:59 | US_ITS ---
PROCEDURE: BREAST LIMITED UNILATERAL 10/19/2024 REASON FOR EXAM: F, Age 69 y/o , ABN MAMM. Abnormal screening mammogram. COMPARISON: Prior mammogram done earlier in the day.. TECHNIQUE: Procedure Code: [id number] Modality: US Procedure: BREAST LIMITED UNILATERAL. The upper-outer quadrant of the left breast was examined with ultrasound. FINDINGS: There is a 7 mm x 4 mm x 3 mm cyst at the 1 o'clock position of the breast at 4 cm from the nipple. US/Breast Limited Unilateral IMPRESSION: 7 mm x 4 mm x 3 mm cyst at the 1 o'clock position of the breast at 4 cm from th e nipple. BI-RADS 2: BENIGN RECOMMENDATION: Routine annual follow-up in 1 Year Reading Location: [id number]
--- NOTE | 2024-10-19 12:59 | BI_ITS ---
EXAM: DIAG MAMM W/CAD, UNILAT 10/19/2024 CLINICAL HISTORY: F, Age 69 y/o , ABN MAMM. Questionable asymmetry in the upper-outer aspect of the left breast. TECHNIQUE: Procedure Code: [id number] Modality: MG Procedure: DIAG MAMM W/CAD, UNILAT. COMPARISON: Prior exam(s) dated October 13, 2024.. FINDINGS: TISSUE DENSITY: The breasts are heterogeneously dense, which may obscure small masses. Bilateral Breast Mammographic Findings: No significant masses, calcifications or other abnormalities are identified. No suspicious masses, areas of developing architectural distortion, or suspicious calcifications. There has been no significant interval change. BI/DIAG MAMM W/CAD, UNILAT IMPRESSION: No suspicious abnormality is seen. Sonographic correlation recommended. OVERALL FINAL ASSESSMENT BI-RADS 0: INCOMPLETE - NEED ADDITIONAL IMAGING EVALUATION. RECOMMENDATION: Ultrasound Recommended A letter with findings and recommendations will be mailed to the patient. Reading Location: [id number]
== END | disposition home or self-care (01) ==
LOC: OPBI 12:58
PROVIDERS: PCP Family Medicine; Referring Provider Nurse Practitioner Women's Health; Visit Provider Nurse Practitioner Women's Health
DX: R92.8 Other abnormal and inconclusive findings on diagnostic imaging of breast (principal)
CPT/HCPCS: 76642; 77065

== ENCOUNTER → 2024-11-28 | Outpatient (CLI) | payer MEDICARE, OTHER, SELFPAY ==
--- OUTSIDE RECORDS SUMMARY | 2024-11-28 20:32 | XMS RPT_ITS | CCD ---
Author Organization [facility] Providers Care Can Cutter Name Role Phone Dr. Edilberto White Referring Provider Devin PRE ASSEMBLY WIRER, PRE ASSEMBLY WIRER-C Natalie Attending Provider Kana PRE ASSEMBLY WIRER, PRE ASSEMBLY WIRER-C Suzanna Primary Care Provider Kana PRE ASSEMBLY WIRER, PRE ASSEMBLY WIRER-C Suzanna Primary Care Provider Kana HILL, PRE ASSEMBLY WIRER-C Suzanna Referring Provider Leila Deleon Attending Provider Unavailable Kana PRE ASSEMBLY WIRER, PRE ASSEMBLY WIRER-C Suzanna Primary Care Provider Devin HILL, PRE ASSEMBLY WIRER-C Natalie Attending Provider Dr. Urbano Mendosa Attending Provider [phone] Dr. Urbano Mendosa Other Provider Stathopoulos, PRE ASSEMBLY WIRER-C Agnes Primary Care Provider Bubba, PRE ASSEMBLY WIRER-C Agnes Referring Provider Kana HILL, PRE ASSEMBLY WIRER-C Suzanna Referring Provider Devin HILL, PRE ASSEMBLY WIRER-C Natalie Attending Provider Stathopoulos, PRE ASSEMBLY WIRER-C Agnes Primary Care Provider Carter Rea MD Primary Care Provider Carter Rea MD Referring Provider [phone] Devin HILL-Natalie Fan Attending Provider [phone] Carter Rea MD Primary Care Physician Devin HILL-Natalie Fan Attending Physician [phone] Devin PRE ASSEMBLY WIRER-C, Natalie Referring Provider Rona, Chalon Primary Care Unavailable Devin, Natalie Attending Unavailable Devin, Natalie Referring Unavailable Devin, Natalie Attending Unavailable Devin, Natalie Referring Unavailable Rona, Chalon Primary Care Unavailable Rona, Chalon Primary Care Unavailable Rona, Chalon Attending Unavailable Rona, Chalon Referring Unavailable [place], Natalie Attending Unavailable Rona, Chalon Primary Care Unavailable Rona, Chalon Referring Unavailable Devin, Natalie Attending Unavailable [place], Natalie Referring Unavailable Rona, Chalon Primary Care Unavailable Allergies Allergy Classification Reported Allergen(s) Allergy Type Date of Onset Reaction(s) Facility (12 sources) Lisinopril Drug Allergy 2 Chest tightness [facility] Comment on above: cough (1 source) Lisinopril Drug Allergy 5 [facility] Repository Medications Current Medications Medication Drug Class(es) Dates Sig (Normalized) Sig (Original) biotin 1 mg oral capsule (20 sources) Start: 08-13-2021 Biotin Active 1 MG PO .q 4 days August 13, 2021 3:43pm Start: 07-31-2020 End: 08-13-2021 take 1 capsule by mouth once daily calcium citrate 950 mg oral tablet (12 sources) Start: 07-06-2018 Start: 07-06-2018 take 200 mg by mouth once davie y Calcium Citrate Active 200 MG PO DAILY July 06, 2018 12:00am estradiol 0.1 mg/ml vaginal cream (8 sources) Estrogen Start: 02-15-2024 Start: 08-18-2022 End: 02-15-2024 Estradiol 0.01 % (0.1 mg/gra m) cream Discontinued 0 VAGINAL .COMPLEX 42.5 2 August 18, 2022 12:00am February 15, 2024 10:57am small amount as directed vaginal every other day X 4 weeks then twice a week; Start: 08-18-2022 Estradiol Acti ve 0 VAGINAL .COMPLEX 42.5 August 17, 2022 11:00pm small amount as directed vaginal every other day X 4 weeks then twice a week; ferrous sulfate 325 mg oral tablet (20 sources) Start: 08-13-2021 Start: 04-13-2017 End: 08-13-2021 take 1 tablet by mouth three times daily Ferrous Sulfate (Feosol) 325 mg (65 mg iron) tablet Discontinued 325 mg PO THREE TIMES A DAY April 13, 2017 1:00am August 13, 2021 3:44pm hydroCHLOROthiazide 25 mg oral tablet (12 sources) Thiazide Diuretic Start: 04-13-2017 take 1 tablet by mouth once daily levothyroxine sodium 0.05 mg oral tablet (12 sources) l-Thyroxine Start: 04-13-2017 take 1 tablet by mouth once daily losartan potassium 25 mg oral tablet (12 sources) Angiotensin 2 Receptor Aye Start: 08-13-2021 take 1 tablet by mouth once daily Magnesium Chloride (9 sources) Start: 08-13-2021 take 250 mg by mouth once daily Magnesium Chloride Active 250 MG PO DAILY August 12, 2021 11:00pm Start: 08-13-2021 take 250 mg by mouth once davie y Magnesium Chloride Active 250 MG PO DAILY August 13, 2021 12:00am Start: 08-13-2021 Magnesium Chlo ride Active MG PO August 13, 2021 12:00am Magnesium Chloride 64 mg mag nesium tablet (3 sources) Start: 08-13-2021 Start: 08-13-2021 Magnesium Chlo ride 64 mg magnesium tablet Active 250 mg PO DAILY August 13, 2021 12:00am SUPPLEMENT mecobalamin 1 mg sublingual tablet (12 sources) Start: 04-13-2017 Multivitamin,Ah-Eylj-Noeovxi s (Complete Multivitamin) tablet (20 sources) Start: 08-13-2021 Start: 08-13-2021 Multivitamin,T c-Tigp-Uaqoazec (Complete Multivitamin) tablet Active 1 {tbl} PO .q 4 days August 13, 2021 3:42pm Start: 08-13-2021 Multivitamin,T e-Xuaz-Kevvwjuh (Complete Multivitamin) tablet Active 1 TABLET PO .q 4 days August 13, 2021 2:42pm Start: 08-13-2021 Multivitamin,T p-Xkgr-Vlydidkv (Complete Multivitamin) tablet Active 1 TABLET PO .q 4 days August 13, 2021 3:42pm Start: 07-06-2018 End: 08-13-2021 Multivitamin,Ug-Bntw-Aozgkew s (Complete Multivitamin) tablet Discontinued 1 {tbl} PO DAILY July 06, 2018 12:00am August 13, 2021 3:44pm Start: 07-06-2018 End: 08-13-2021 take 1 tablet by mouth once daily Multivitamin,Rx-Rvrv-Szarkpwp (Complete Multivitamin) tablet Discontinued 1 TABLET PO DAILY July 05, 2018 11:00pm August 13, 2021 2:44pm Start: 07-06-2018 End: 08-13-2021 take 1 tablet by mouth once daily Multivitamin,Yv-Acpw-Odkmxldl (Complete Multivitamin) tablet Discontinued 1 TABLET PO DAILY July 06, 2018 12:00am August 13, 2021 3:44pm Zinc (12 sources) Start: 07-31-2020 Start: 07-31-2020 Zinc 50 mg tab let Active 50 mg PO Q4D July 31, 2020 12:00am SUPPLEMENT Start: 07-31-2020 Zinc Active 50 MG PO Q4D July 30, 2020 11:00pm Start: 07-31-2020 Zinc Active 50 MG PO Q4D July 31, 2020 12:00am Start: 07-31-2020 take 50 mg by mouth once daily Zinc Active 50 MG PO DAILY July 31, 2020 12:00am Completed/Discontinued Medications Medication Drug Class(es) Dates Sig (Normalized) Sig (Original) atorvastatin 10 mg oral tablet (12 sources) HMG-CoA Reductase Inhibitor Start: 07-31-2020 End: 08-13-2021 take 1 tablet by mouth once daily Atorvastatin (Lipitor) 10 mg tablet Discontinued 10 mg PO DAILY July 31, 2020 12:00am August 13, 2021 3:41pm Multivitamin-Folic Acid-Biotin (Wqir-Oryv-Zormd (Et-Ms-Uwgqar)) 400-2,000 mcg tablet (12 sources) Start: 07-18-2019 End: 07-31-2020 Multivitamin-Folic Acid-Biotin (Dyuq-Dplj-Dcdut (Jb-Ya-Aujaeb)) 400-2,000 mcg tablet Discontinued {tbl} PO July 18, 2019 12:00am July 31, 2020 3:32pm Start: 07-18-2019 End: 07-31-2020 Multivitamin-Folic Acid-Biot in (Ohqu-Htmy-Vafsr (Yv-Qp-Hakiyg)) 400-2,000 mcg tablet Discontinued TABLET PO July 17, 2019 11:00pm July 31, 2020 2:32pm Start: 07-18-2019 End: 07-31-2020 Multivitamin-Folic Acid-Biot in (Nmwi-Xzux-Fyogp (Cd-Wq-Fherzv)) 400-2,000 mcg tablet Discontinued TABLET PO July 18, 2019 12:00am July 31, 2020 3:32pm Problems Active Problems Problem Classification Problem Date Documented Date Episodic/Chronic Essential hypertension (12 sources) Hypertensive disorder; Translations: [Essential (primary) hypertension] 04-13-2017 Chronic Menopausal disorders (8 sources) Atrophic vaginitis; Translations: [Postmenopausal atrophic vaginitis] 08-18-2022 Chronic Comment on above: estradiol cream Other bone disease and musculoskeletal deformities (3 sources) Postmenopausal osteopenia; Translations: [Other specified disorders of bone density and structure, unspecified site] 09-21-2023 Episodic Comment on above: Rpt 2025 Other diseases of bladder and urethra (5 sources) Urinary incontinence due to urethral sphincter incompetence; Translations: [Intrinsic sphincter deficiency (ISD)] 08-18-2022 Episodic Comment on above: estradiol cream and kegels/improved Other diseases of bladder and urethra (1 source) Intrinsic sphincter deficiency (ISD); Translations: [Intrinsic (urethral) sphincter deficiency [ISD]] 08-18-2022 Episodic Other screening for suspected conditions (not mental disorders or infectious disease) (14 sources) Endometrium thickened; Translations: [Abnormal findings on diagnostic imaging of other specified body structures] Chronic Comment on above: 5mm; EMB benign Other screening for suspected conditions (not mental disorders or infectious disease) (6 sources) Patient encounter status; Translations: [Encounter for screening for malignant neoplasm of colon] Onset: 10-28-2024 Episodic Residual codes; unclassified (12 sources) Genetic mutation; Translations: [Genetic susceptibility to other disease] 09-02-2021 Episodic Comment on above: ENRIKE heterozygous pos itive:breast screening Q6 mo with mammogram and MRI with contrast alternating Q6mo Residual codes; unclassified (12 sources) Family history of cancer; Translations: [Family history of malignant neoplasm, unspecified] 08-13-2021 Episodic Comment on above: sister renal. Aunt m ult myeloma;aunt gallbaddermother gallbladder. cousin endometrial;2 aunts unknown cancer type. All maternal relatives. Residual codes; unclassified (12 sources) Family history of gene mutation; Translations: [Family history of carrier of genetic disease] 08-13-2021 Episodic Comment on above: cousin + ENRIKE gene Residual codes; unclassified (10 sources) Family history of malignant neoplasm, unspecified; Translations: [Family history of unspecified malignant neoplasm] Episodic Residual codes; unclassified (6 sources) Family history of carrier of genetic disease; Translations: [Family history of genetic disease carrier] Episodic Residual codes; unclassified (10 sources) Genetic susceptibility to other disease; Translations: [Genetic susceptibility to other disease] Episodic Thyroid disorders (13 sources) Hypothyroidism; Translations: [Hypothyroidism, unspecified] Onset: 03-17-2024 04-13-2017 Chronic Past or Other Problems Problem Classification Problem Date Documented Date Episodic/Chronic Nonmalignant breast conditions (4 sources) Mammographic calcification of breast; Translations: [Mammographic calcification found on diagnostic imaging of breast] Onset: 04-06-2024 02-16-2024 Episodic Results Test Name Value Interpretation Reference Range Facility Breast Limited Unilateralon 10-19-2024 Breast Limited Unilateral [facility] [address] [place] [address] [id number] Breast Limited Unilateral MR#: [id number] Acct: [id number] Name: FRAN SHEARER Rep #: [id number] : 1955 F 69 From: Konstantin quintanilla MD PCP: Dr. Carter Rea MD Status: REG CLI Study: Breast Limited Unilateral Date of Exam: Exam# [id number] Ordering Dr: Natalie Beltran PRE ASSEMBLY WIRER PRE ASSEMBLY WIRER -C PROCEDURE: BREAST LIMITED UNILATERAL 10/19/2024 REASON FOR EXAM: F, Age 69 y/o , ABN MAMM. Abnormal screening mammogram. COMPARISON: Prior mammogram done earlier in the day.. TECHNIQUE: Procedure Code: USBRSTLIMIT Modality: US Procedure: BREAST LIMITED UNILATERAL. The upper-outer quadrant of the left breast was examined with ultrasound. FINDINGS: There is a 7 mm x 4 mm x 3 mm cyst at the 1 o'clock position of the breast at 4 cm from the nipple. US/Breast Limited Unilateral IMPRESSION: 7 mm x 4 mm x 3 mm cyst at the 1 o'clock position of the breast at 4 cm from the nipple. BI-RADS 2: BENIGN RECOMMENDATION: Routine annual follow-up in 1 Year Reading Location: [id number] CC: PRE ASSEMBLY WIRER-Meng Beltran; Dr. Carter Rea MD Triage Specialist: Signed Normal [facility] Breast imaging reportOrdered By: Konstantin Person on 10-19-2024 Study report [facility] [address] [place] [address] DIAG MAMM W/CAD, UNILAT MR#: [id number] Acct: [id number] Name: FRAN SHEARER Rep #: [id number] : 1955 F 69 From: Kade Person MD PCP: Dr. Carter Rea MD Status: REG CL I Study:DIAG MAMM W/CAD, UNILAT Date of Exam: 10/19/24 Exam# [id number] Ordering Dr: Natalie Beltran NP PRE ASSEMBLY WIRER-C EXAM: DIAG MAMM W/CAD, UNILAT 10/19/2024 CLINICAL HISTORY: F, Age 69 y/o , ABN MAMM. Questionable asymmetry in the upper-outer aspect of the left breast. TECHNIQUE: Procedure Code: BIDMWCADU Modality: Procedure: DIAG MAMM W/CAD, UNILAT. COMPARISON: Prior exam(s) dated October 13, 2024.. FINDINGS: TISSUE DENSITY: The breasts are heterogeneously dense, which may obscure small masses. Bilateral Breast Mammographic Findings: No significant masses, calcifications or other abnormalities are identified. No suspicious masses, areas of developing architectural distortion, or suspicious calcifications. There has been no significant interval change. BI/DIAG MAMM W/CAD, UNILAT IMPRESSION: No suspicious abnormality is seen. Sonographic correlation recommended. OVERALL FINAL ASSESSMENT BI-RADS 0: INCOMPLETE - NEED ADDITIONAL IMAGING EVALUATION. RECOMMENDATION: Ultrasound Recommended A letter with findings and recommendations will be mailed to the patient. Reading Location: [id number] CC: DANYA Beltran; Dr. Carter Rea MD ~ Triage Specialist: Signed [facility] DIAG MAMM W/CAD, UNILATon DIAG MAMM W/CAD, UNILAT [facility] [address] [place] [address] DIAG MAMM W/CAD, UNILAT MR#: [id number] Acct: [id number] Name: FRAN SHEARER Rep #: [id number] : 1955 F 69 From: Konstantin quintanilla MD PCP: Dr. Carter Rea MD Status: REG CLI Study: DIAG MAMM W/CAD, UNILAT Date of Exam: 10/19/24 Exam# [id number] Ordering Dr: Natalie Beltran NP PRE ASSEMBLY WIRER -Meng EXAM: DIAG MAMM W/CAD, UNILAT 10/19/2024 CLINICAL HISTORY: F, Age 69 y/o , ABN MAMM. Questionable asymmetry in the upper-outer aspect of the left breast. TECHNIQUE: Procedure Code: BIDMWCADU Modality: MG Procedure: DIAG MAMM W/CAD, UNILAT. COMPARISON: Prior exam(s) dated October 13, 2024.. FINDINGS: TISSUE DENSITY: The breasts are heterogeneously dense, which may obscure small masses. Bilateral Breast Mammographic Findings: No significant masses, calcifications or other abnormalities are identified. No suspicious masses, areas of developing architectural distortion, or suspicious calcifications. There has been no significant interval change. BI/DIAG MAMM W/CAD, UNILAT IMPRESSION: No suspicious abnormality is seen. Sonographic correlation recommended. OVERALL FINAL ASSESSMENT BI-RADS 0: INCOMPLETE - NEED ADDITIONAL IMAGING EVALUATION. RECOMMENDATION: Ultrasound Recommended A letter with findings and recommendations will be mailed to the patient. Reading Location: [id number] CC: DANYA Beltran; Dr. Carter Rea MD Triage Specialist: Signed Normal [facility] Breast imaging reportOrdered By: Norma Cody on 10-13-2024 Study report [facility] [address] [place] [address] SCRN MAMM (CAD)W/MIGUEL BILAT MR#: [id number] Acct: [id number] Name: FRAN SHEARER Rep #: [id number] : 1955 F 69 From: Perry Negro MD PCP: Dr. Carter Rea MD Status: REG CL I Study:SCRN MAMM (CAD)W/MIGUEL BILAT Date of Exa m: 10/13/24 Exam# [id number] Ordering Dr: Natalie Beltran NP PRE ASSEMBLY WIRER-C EXAM: SCRN MAMM (CAD)W/MIGUEL BILAT DATE: 10/13/2024 CLINICAL HISTORY: F, Age 69 y/o , BREAST CANCER SCREENING TECHNIQUE: Procedure Code: BISMWCADBTOM Modality: MG Procedure: SCRN MAMM (CAD)W/MIGUEL BILAT COMPARISON: Prior exam(s) were compared FINDINGS: TISSUE DENSITY: The breasts are heterogeneously dense, which may obscure small masses. Bilateral Breast Mammographic Findings: Left breast: There is an irregular mass in the upper-outer left breast mid depth. Recommend additional imaging with spot compression views and limited ultrasound scanning the upper-outer left breast. Right breast: No suspicious masses, calcifications or other abnormalities are identified. BI/SCRN MAMM (CAD)W/MIGUEL BILAT IMPRESSION: Incomplete evaluation. Additional diagnostic imaging is recommended of the leftbreast as described above. OVERALL FINAL ASSESSMENT BI-RADS 0: INCOMPLETE - NEED ADDITIONAL IMAGING EVALUATION. RECOMMENDATION: Additional Views obtained/call backs A letter with findings and recommendations will be mailed to the patient. Reading Location: [id number] CC: PRE ASSEMBLY WIRER-C Natalie Beltran; Dr. Carter Rea MD ~ Triage Specialist: Signed [facility] SCRN MAMM (CAD)W/MIGUEL BILATo n 10-13-2024 SCRN MAMM (CAD)W/MIGUEL BILAT [facility] [address] [place] [address] SCRN MAMM (CAD)W/MIGUEL BILAT MR#: [id number] Acct: [id number] Name: FRAN SHEARER Rep #: [id number] : 1955 F 69 From: Norma Cleaning i, MD PCP: Dr. Carter Rea MD Status: REG CLI Study: SCRN MAMM (CAD)W/MIGUEL BILAT Date of Exam: 07/02 Exam# [id number] Ordering Dr: Natalie Beltran NP PRE ASSEMBLY WIRER -C EXAM: SCRN MAMM (CAD)W/MIGUEL BILAT DATE: 10/13/2024 CLINICAL HISTORY: F, Age 69 y/o , BREAST CANCER SCREENING TECHNIQUE: Procedure Code: BISMWCADBTOM Modality: MG Procedure: SCRN MAMM (CAD)W/MIGUEL BILAT COMPARISON: Prior exam(s) were compared FINDINGS: TISSUE DENSITY: The breasts are heterogeneously dense, which may obscure small masses. Bilateral Breast Mammographic Findings: Left breast: There is an irregular mass in the upper-outer left breast mid depth. Recommend additional imaging with spot compression views and limited ultrasound scanning the upper-outer left breast. Right breast: No suspicious masses, calcifications or other abnormalities are identified. BI/SCRN MAMM (CAD)W/MIGUEL BILAT IMPRESSION: Incomplete evaluation. Additional diagnostic imaging is recommended of the left breast as described above. OVERALL FINAL ASSESSMENT BI-RADS 0: INCOMPLETE - NEED ADDITIONAL IMAGING EVALUATION. RECOMMENDATION: Additional Views obtained/call backs A letter with findings and recommendations will be mailed to the patient. Reading Location: [id number] CC: PRE ASSEMBLY WIRER-Meng Beltran; Dr. Carter Rea MD Triage Specialist: Signed Normal [facility] General Worker Office Visit Reporton 09-05-2024 General Worker Office Visit Report [facility] [address], [address] [place] [id number] OFFICE VISIT Date of Service: 09/05/24 MR#: [id number] Acct: [id number] Name: FRAN SHEARER Rep #: [id number] : 1955 Provider: DANYA castañeda Age/Sex: 69/F Location: [facility] Status: Signed Intake Vital Signs 08/31/23 15:29 09/05/24 14:38 09/05/24 14:43 Height 5 ft 1 in 5 ft 1 in 5 ft 1 in Weight: 141 lb 2 oz BMI 26.6 BP 128/72 H Intake Visit Reasons: Annual (RN DOCUMENT IMPROVEMENT) Chief Complaint: Annual Deep Tissue Massage Therapist Required: No Is patient in pain?: No Allergies lisinopril Adverse Reaction (Intermediate, Verified 09/05/24 14:51) Chest tightness Medications ???Medication ???Instructions ???Recorded ???Confirmed ???Type hydrochlorothiazide 25 mg tablet 25 mg PO DAILY HTN 90 days ##90 09/05/24 History levothyroxine 50 mcg tablet 50 mcg PO DAILY THYROID 90 days 09/05/24 History ##90 mecobalamin (vitamin B12) 1,000 1,000 mcg sublingual QDAY 04/13/17 09/05/24 History mcg disintegrating tablet,sublingual calcium citrate 200 mg PO Q4D SUPPLEMENT 07/06/18 09/05/24 History zinc 50 mg tablet 50 mg PO Q4D SUPPLEMENT 07/31/20 0 09/05/24 History biotin 1 mg capsule 1 mg PO DAILY 08/13/21 09/05/24 Hi story ferrous sulfate 325 mg (65 mg 325 mg PO .q 4 days 08/13/2109/05 History iron) tablet (Feosol) losartan 25 mg tablet 25 mg PO DAILY HTN 08/13/21 History magnesium chloride 64 mg 250 mg PO DAILY SUPPLEMENT 2 09/05/24 History (magnesium chloride) tablet multivitamin,tx-iron -minerals 1 tab PO .q 4 days 08/13/21 History (Complete Multivitamin tablet) estradiol 0.01% (0.1 mg/gram) See Rx Instructions vaginal 09/05/24 Rx vaginal cream .COMPLEX #42.5 grams Is last menstrual period known: No Post menopausal: Yes Patient : No : No PFSH Medical History Thickened endometrium Wears glasses Post-menopausal Arthritis Easy bruising Difficulty swallowing Leg cramps Non-smoker Hypothyroid HTN (hypertension) Surgical History History of colonoscopy H/O tubal ligation History of D C Family History Father Diabetes Mother Hypertension Cancer gallbladder Grandfather Diabetes Aunt Cancer gallbladder Aunt Cancer multiple myeloma Sister Cancer renal Unknown Breast cancer associated with mutation in ENRIKE gene Social History Smoking Status: Never smoker second hand exposure: No alcohol intake: never what type of physical activity do you participate in: none additional social history: [employer] History 3 Elective abortions Hx Para 3 Spontaneous abortions Hx # Term Pregnancies Ectopic pregnancies Hx # Pregnancies Multiple births # of living children Past Pregnancies Del. Date Name GA/Weeks Outcome Route Bth Weight Gen Labor Lgth Anesthesia Del Locatn Provider FOSerafin 07/26/77 Remi 09/13/80 Melina 07/12/86 [place] HPI Encounter for routine gynecological examination Details: FRAN SHEARER is a 69 year old who presents for annual exam. Denies concerns Last PAP: NA History of abnormal PAP: no Last mammogram: 09/2023. MRI 03/2024; alternates Q6mo History of abnormal mammogram: no Colon cancer screenin. Q5yr Other preventative health care screenings: Rona Female Reproductive History Questions: metorrhagia: No, sexually active: Yes, dyspareunia: No and PCB: No ROS Const Constitutional: Denies fatigue, weight gain or weight loss Cardio Card: Denies chest pain Resp Resp: Denies cough or dyspnea on exertion GI GI: Denies abdominal pain, bloating, change in stool character, constipation or vomiting : Reports as per HPI; Denies difficulty voiding, pelvic pain, urinary frequency, urinary incontinence, urinary urgency, vaginal discharge or vaginal pruritus Exam Const General: cooperative, healthy appearing, no acute distress and well developed Orientation: alert, oriented to person and oriented to place HENNJ Head: normal to inspection Neck Neck: normal visual inspection Thyroid: thyroid normal Lymphatic: no lymphadenopathy noted Chest Breast inspection: normal inspection of the breasts and normal inspection of the axillae Breast palpation: normal palpation of the breasts, normal palpation of the axillae and no axillary lymphadenopathy Resp Effort Inspection: normal respiratory effort GI Palpation: soft, no masses and nontender Rectal Exam: deferred (more content not included)... Normal [facility] Breast Bilateral W/O and Won 03-20-2024 Breast Bilateral W/O and W [facility] [address] [place] [address] Breast Bilateral W/O and W MR#: [id number] Acct: [id number] Name: FRAN SHEARER Rep #: [id number] : 1955 F 68 From: Patrice Anand MD PCP: Dr. Carter Rea MD Status: REG CLI Study: Breast Bilateral W/O and W Date of Exam: 03/20 Exam# [id number] Ordering Dr: Natalie Beltran NP PRE ASSEMBLY WIRER -C PROCEDURE: BREAST BILATERAL W/O AND W REASON FOR EXAM: High-risk screening breast MRI. TECHNIQUE: Bilateral breast MRI using a dedicated bilateral breast coil before and following intravenous contrast. Images reviewed with subtraction and DynaCAD. COMPARISON: Correlation made to prior mammograms most recently from 2023. FINDINGS: Amount of Fibroglandular Tissue: Scattered fibroglandular tissue. Background Parenchymal Enhancement: Moderate. This may decrease the sensitivity of breast MRI. RIGHT Breast: No suspicious mass or non-mass enhancement. LEFT Breast: No suspicious mass or non-mass enhancement. Other Findings: No suspicious axillary or internal mammary lymph nodes. Visualized portions of the thoracic and abdominal viscera are unremarkable. MRI/Breast Bilateral W/O and W IMPRESSION: No MR evidence of malignancy in either breast. OVERALL BI-RADS CATEGORY: 1 Reading Location: [facility] CC: PRE ASSEMBLY WIRER-C Natalie Beltran; Dr. Carter Rea MD Triage Specialist: Signed Normal [facility] Thyroid Stim Hormone (TSH)on 02-25-2024 TSH 2.560 uIU/mL Normal 0.358-3.740 [facility] Comment on above: Order Comment: Order Date: 02/21/24 Order Info: [id number] - TSH Performed By: #### L [id number], L506.1000 #### [facility] [address] [place], [address] Vitamin D,25 Hydroxyon 02-24 Vitamin D 25-OH 30.4 ng/mL Normal [facility] Comment on above: Order Comment: Order Date: 02/21/24 Order Info: [id number] - VITD25 Result Comment: Zelda min D 25(OH) Status Range Deficiency <20 ng/mL (50nmol/L) Insufficiency 20 - 30 ng/mL (50 - 75 nmol/L) Sufficiency 30 - 100 ng/mL (75 - 250 nmol/L) Toxicity >100 ng/mL (>250 nmol/L) Performed By: #### L [id number], L506.1000 #### [facility] [address] [place], [address] Office Visit Reporton [address] [facility] [address] [place] [address] OFFICE VISIT Date of Service: 09/22/23 MR#: [id number] Acct: [id number] Patient: FRAN SHEARER Rep #: [id number] : 1955 Provider: ANIA Cadet Age/Sex: 68/F Location: [facility] Status: Signed Intake Vital Signs 08/31/23 15:29 Height 5 ft 1 in Intake Visit Reasons: POST ACCIDENT DRUG SCREEN/MAGGI CO INS GRP Chief Complaint: Annual Allergies lisinopril Adverse Reaction (Intermediate, Verified 08/31/23 15:23) Chest tightness Have you fallen in the past year?: No Office Procedures [facility] Billing Sheet Testing Post-Accident NON-DOT Drug Screen in [facility]: Yes Clinical Quality Measures Falls Risk Screening/Assistive Devices Have you fallen in the past year?: No 11/22/23 4175 Date Fernando Zhang Signature: Date (if applicable) CC: Normal [facility] Basophil percentageOrdered B y: Natalie Beltran on 03-16-2023 Basophil percentage < 1.0 mg/dL 0.55-1.02 [facility] No Panel InformationOrdered By: Natalie Beltran on 03-16-2023 Bedside Estimated GFR (eGFR) > 60.0000 mL/min >60 [facility] Absolute lymphocyte countOrd ered By: Agnes Mac on 05-23-2022 Lymphocytes Auto (Unsp spec) [#/Vol] 0.83 10*3/uL 0.83-4.51 [facility] Basophil percentageOrdered B y: Agnes Stathopoulos on 05-23-2022 Basophils/100 WBC (Bld) 0.8 % 0-1 [facility] Bilirubin [Mass/Vol] 1.00 mg/dL 0.20-1.00 [facility] Comment on above: For patients on eltr ombopag therapy, use of Dimension [place] TBIL is not recommended. Chloride [Moles/Vol] 102 mmol/L 98-107 [facility] Cholesterol [Mass/Vol] 198 mg/dL <200 [facility] Comment on above: <200 mg/dL Desirable 200-240 mg/dL Borderline >240 mg/dL High Risk Eosinophils/100 WBC (Bld) 1.3 % 0-5 [facility] Glucose [Mass/Vol] 102 mg/dL 74-106 [facility] Comment on above: Fasting Glucose resu lt from 100 to 125 mg/dL suggests IMPAIRED HOMEOSTASIS per A.D.A. criteria. Neutrophils (Bld) [#/Vol] 2.7 10*3/uL 2.0-7.7 [facility] Neutrophils/100 WBC (Bld) 67.9 % 47-70 [facility] Potassium [Moles/Vol] 3.5 mmol/L 3.5-5.1 [facility] Protein [Mass/Vol] 6.8 g/dL 6.4-8.2 [facility] Sodium [Moles/Vol] 136 mmol/L 136-145 [facility] Triglyceride [Mass/Vol] 72 mg/dL <199 [facility] Comment on above: The drugs N-Acetylcy steine and Metamizole may falsely depress this assay.Serum Triglycerides Reference Interval Normal <150 mg/dL Borderline high 150 - 199 mg/dL High 200 - 499 mg/dL Very High > or = 500 mg/dL WBC (Bld) [#/Vol] 4.0 10*3/uL 4.4-11.0 [facility] Blood erythrocytes count (nu mber/volume)Ordered By: Agnes Mac on 05-23-2022 RBC (Bld) [#/Vol] 4.29 10*6/uL 4.2-5.4 [facility] Blood hemoglobin measurement (mass/volume)Ordered By: Agnes Mac on 05-23-2022 Hemoglobin (Bld) [Mass/Vol] 12.5 g/dL 12.0-15.0 [facility] Blood lymphocytes/100 leukoc ytesOrdered By: Agnes Statanshul on 05-23-2022 Lymphocytes/100 WBC (Bld) 20.9 % 19-41 [facility] Blood monocytes/100 leukocyt esOrdered By: Agnes Statanshul on 05-23-2022 Monocytes/100 WBC (Bld) 8.8 % 0-10 [facility] Blood platelet mean volumeOr dered By: Agnes Statanshul on 05-23-2022 Platelet mean volume (Bld) [Entitic vol] 10.0 fL 6.2-12.0 [facility] Determination of erythrocyte mean corpuscular volume (MCV)Ordered By: Agnes Statanshul on 05-23-2022 MCV (RBC) [Entitic vol] 87.9 fL 81-99 [facility] Hematocrit Auto (Bld) [Volum e fraction]Ordered By: Agnes Mac on 05-23-2022 Hematocrit (Bld) [Volume fraction] 37.7 % 37-47 [facility] - Chemistry and C hemistry - challengeOrdered By: Agnes aMc on 05-23-2022 ALP [Catalytic activity/Vol] 73 U/L 45-117 [facility] ALT [Catalytic activity/Vol] 18 U/L 13-56 [facility] CO2 [Moles/Vol] 29.0 mmol/L 21.0-32.0 [facility] Free T4 [Mass/Vol] 1.10 ng/dL 0.76-1.46 [facility] Globulin (S) [Mass/Vol] 3.2 g/dL 2.2-4.2 [facility] Urea nitrogen/Creatinine [Mass ratio] 20.4 mg/mg 10-20 [facility] - Hematology and Cell countsOrdered By: Agnes Mac on 05-23-2022 Erythrocyte distribution width (RBC) [Entitic vol] 39.0 fL 35.1-43.9 [facility] Erythrocyte distribution width (RBC) [Ratio] 12.1 % 11.6-14.6 [facility] Immature granulocytes/100 WBC (Bld) 0.300 % 0.0-0.9 [facility] Comment on above: IG% - Immature Granu locytes (promyelocytes, myelocytes and metamyelocytes) > 1% indicates that a LEFT SHIFT is Present. MCH (RBC) [Entitic mass] 29.1 pg 27.0-32.0 [facility] Nucleated RBC/100 WBC (Bld) [Ratio] 0 % 0-5 [facility] MCHC Auto (RBC) [Mass/Vol]Or dered By: Agnes Mac on 05-23-2022 MCHC (RBC) [Mass/Vol] 33.2 g/dL 32-36 [facility] No Panel InformationOrdered By: Agnes Mac on 05-23-2022 Estimated GFR (MDRD) Amer 101 mL/min >60 [facility] Comment on above: GFR Calc Estimated GFR (MDRD) Non-Af Amer 84 mL/min >60 [facility] Comment on above: Non- GFR Calc Thyroid Stimulating Hormone (TSH) 2.68 uIU/mL 0.358-3.74 [facility] Platelets bldOrdered By: Addi Mac on 05-23-2022 Platelets (Bld) [#/Vol] 248 10*3/uL 150-450 [facility] Serum or plasma albumin adeel urement (mass/volume)Ordered By: Agnes Mac on 05-23-2022 Albumin [Mass/Vol] 3.6 g/dL 3.2-5.0 [facility] Serum or plasma albumin/glob ulin mass ratioOrdered By: Agnes Mac on 05-23-2022 Albumin/Globulin [Mass ratio] 1.1 {ratio} 0.9-2.4 [facility] Serum or plasma calcium adeel urement (mass/volume)Ordered By: Agnesdamaris Mac on 05-23-2022 Calcium [Mass/Vol] 9.1 mg/dL 8.5-10.1 [facility] Serum or plasma cholesterol in HDL measurement (mass/volume)Ordered By: Agnesdamaris Mac on 05-23-2022 Cholesterol in HDL [Mass/Vol] 77 mg/dL >40 [facility] Comment on above: The drugs N-Acetylcy steine and Metamizole may falsely depress this assay. Reference Range HDL <40 mg/dL Low HDL Cholesterol HDL >or= 60 mg/dL High HDL Cholesterol Serum or plasma cholesterol in VLDL measurement (mass/volume)Ordered By: Agnes Mac on 05-23-2022 Cholesterol in VLDL [Mass/Vol] 14 mg/dL 5-40 [facility] Serum or plasma creatinine m easurement (mass/volume)Ordered By: Agnes Mac on 05-23-2022 Creatinine [Mass/Vol] 0.74 mg/dL 0.55-1.02 [facility] Comment on above: The validity of the calculated GFR & GFRAA in patients over 70 years has not been determined. Clinical correlation is essential. Serum or plasma low density lipoprotein (LDL) cholesterol measurement (mass/volume)Ordered By: Agnes Mac on 05-23-2022 Cholesterol in LDL [Mass/Vol] 107 mg/dL 0-130 [facility] Serum or plasma urea nitroge n measurement (mass/volume)Ordered By: Agnes Mac on 05-23-2022 Urea nitrogen [Mass/Vol] 15 mg/dL 7-18 [facility] Thin prep Papanicolaou smear with manual screeningOrdered By: Agnes Mac on 05-23-2022 Thin prep Papanicolaou smear with manual screening 13 U/L [facility] Thin prep Papanicolaou smear with manual screening 5 -15 [facility] Whole blood hemoglobin A1c/t otal hemoglobin ratio (mass fraction)Ordered By: Agnes Mac on 05-23-2022 HbA1c (Bld) [Mass fraction] 4.9 % 3.8-5.6 [facility] Comment on above: Normal < 5.7 % Predi abetic 5.7 - 6.4 % Diabetic >or= 6.5 % Please note range changes. Basophil percentageon 2021 Cholesterol [Mass/Vol] 187 mg/dL <200 [facility] Work Phone: Comment on above: <200 mg/dL Desirable 200-240 mg/dL Borderline >240 mg/dL High Risk Triglyceride [Mass/Vol] 120 mg/dL <199 [facility] Work Phone: Comment on above: The drugs N-Acetylcy steine and Metamizole may falsely depress this assay.Serum Triglycerides Reference Interval Normal <150 mg/dL Borderline high 150 - 199 mg/dL High 200 - 499 mg/dL Very High > or = 500 mg/dL Serum or plasma cholesterol in HDL measurement (mass/volume)on 11-14-2021 Cholesterol in HDL [Mass/Vol] 58 mg/dL >40 [facility] Work Phone: Comment on above: The drugs N-Acetylcy steine and Metamizole may falsely depress this assay. Reference Range HDL <40 mg/dL Low HDL Cholesterol HDL >or= 60 mg/dL High HDL Cholesterol Serum or plasma cholesterol in VLDL measurement (mass/volume)on 11-14-2021 Cholesterol in VLDL [Mass/Vol] 24 mg/dL 5-40 [facility] Work Phone: Serum or plasma low density lipoprotein (LDL) cholesterol measurement (mass/volume)on 11-14-2021 Cholesterol in LDL [Mass/Vol] 105 mg/dL 0-130 [facility] Work Phone: Basophil percentageon 2021 Basophil percentage < 0.9 mg/dL 0.55-1.02 [facility] Work Phone: No Panel Informationon 09-12 Bedside Estimated GFR (eGFR) > 60.0000 mL/min >60 [facility] Work Phone: Vital Signs Date Time Vital Sign Value Performing Clinician Faci lity 09-05-2024 14:43-0400 Body height 154.94 cm Carter Rea MD Work Phone: [facility] 09-05-2024 14:38-0400 Body mass index (BMI) [Ratio] 26.6 kg/m2 Carter Rea MD Work Phone: [facility] 09-05-2024 14:38-0400 Body weight 64.01 kg Carter Rea MD Work Phone: [facility] 09-05-2024 14:38-0400 Diastolic blood pressure 72 mm[Hg] Carter Rea MD Work Phone: [facility] 09-05-2024 14:38-0400 Systolic blood pressure 128 mm[Hg] Carter Rea MD Work Phone: [facility] 08-18-2022 15:50-0400 Body height 154.94 cm PRE ASSEMBLY WIRERHector Roger PRE ASSEMBLY WIRER Work Phone: [facility] 08-18-2022 15:45-0400 Body mass index (BMI) [Ratio] 27.1 kg/m2 PRE ASSEMBLY WIRERHector Roger PRE ASSEMBLY WIRER Work Phone: [facility] 08-18-2022 15:45-0400 Body weight 65.03 kg DANYA Roger [employer] ASSEMBL[employer] WIRER Work Phone: [facility] 08-18-2022 15:45-0400 Diastolic blood pressure 76 mm[Hg] DANYA Roger [employer] ASSEM[employer]Y WIRER Work Phone: [facility] 08-18-2022 15:45-0400 Systolic blood pressure 130 mm[Hg] PRE ASSEMBLY WIRER-Meng Roger PRE ASSEMBLY WIRER Work Phone: [facility] 12-12-2021 10:05-0400 Body temperature 97 [degF] PRE AS[facility] WIRER-C Suzanna Roger PRE ASSEMBLY WIRER Work Phone: [facility] Work Phone: 12-12-2021 10:05-0400 Diastolic blood pressure 60 mm[Hg] PRE ASSEMBLY WIRER-C Suzanna Roger PRE ASSEMBLY WIRER Work Phone: [facility] Work Phone: 12-12-2021 10:05-0400 Heart rate 73 /min PRE ASSEMBLY WIRER-C Suzanna Roger PRE ASSEMBLY WIRER Work Phone: [facility] Work Phone: 12-12-2021 10:05-0400 Respiratory rate 16 /min PRE [facility]BL[facility] WIRER-C Suzanna Roger PRE ASSEMBLY WIRER Work Phone: [facility] Work Phone: 12-12-2021 10:05-0400 SaO2% (BldA) [Mass fraction] 100 % [facility]BL[facility]IRER-C Suzanna Roger PRE ASSEMBLY WIRER Work Phone: [facility] Work Phone: 12-12-2021 10:05-0400 Systolic blood pressure 120 mm[Hg] PRE ASSEMBLY WIRER-C Suzanna Roger PRE ASSEMBLY WIRER Work Phone: [facility] Work Phone: 12-12-2021 08:47-0400 Body height 154.94 cm PRE ASSEMBLY WIRER-Meng Roger PRE ASSEMBLY WIRER Work Phone: [facility] Work Phone: 12-12-2021 08:47-0400 Body mass index (BMI) [Ratio] 27.1 kg/m2 PRE [facility]BL[facility] WIRER-Meng Roger PRE ASSEMBLY WIRER Work Phone: [facility] Work Phone: 12-12-2021 08:47-0400 Body weight 65 kg PRE ASSEMBL[facility] WIRER-C Suzanna Roger NP Work Phone: [facility] Work Phone: 11-07-2021 11:44-0400 Body height 154.[address] Edilberto White Work Phone: [facility] Work Phone: 11-07-2021 11:44-0400 Body mass index (BMI) [Ratio] 27.3 kg/m2 Dr. Edilberto White Work Phone: [facility] Work Phone: 11-07-2021 11:44-0400 Body weight 65.[address] Edilberto White Work Phone: [facility] Work Phone: 09-04-2021 10:52-0400 Body height 156.[address] Edilberto White Work Phone: [facility] Work Phone: 09-04-2021 10:52-0400 Body mass index (BMI) [Ratio] 26.6 kg/m2 Dr. Edilberto White Work Phone: [facility] Work Phone: 09-04-2021 10:52-0400 Body weight 65.[address] Edilberto White Work Phone: [facility] Work Phone: 09-04-2021 10:52-0400 Diastolic blood pressure 74 mm[Hg] Dr. Edilberto White Work Phone: [facility] Work Phone: 09-04-2021 10:52-0400 Systolic blood pressure 126 mm[Hg] Dr. Edilberto White Work Phone: [facility] Work Phone: 08-13-2021 15:49-0400 Body height 156.[address] Edilberto White Work Phone: [facility] Work Phone: 08-13-2021 15:49-0400 Body mass index (BMI) [Ratio] 27 kg/m2 Dr. Edilberto White Work Phone: [facility] Work Phone: 08-13-2021 15:49-0400 Body weight 65.[address] Edilberto White Work Phone: [facility] Work Phone: 08-13-2021 15:49-0400 Diastolic blood pressure 94 mm[Hg] Dr. Edilberto White Work Phone: [facility] Work Phone: 08-13-2021 15:49-0400 Systolic blood pressure 166 mm[Hg] Dr. Edilberto White Work Phone: [facility] Work Phone: Encounters Encounter Date Encounter Type Care Provider Facility Start: 10-19-2024 End: 10-19-2024 ambulatory Carter Rea MD Work Phone: -[facility] Start: 10-19-2024 End: 10-19-2024 Patient encounter procedure Natalie Bigfork PRE ASSEMBLY WIRER-C -[facility] Work Phone: Start: 10-19-2024 End: 10-19-2024 ambulatory Carter Rea Facility:[facility] Start: 10-13-2024 End: 10-13-2024 ambulatory Carter Rea MD Work Phone: -Outpatient [facility] Start: 10-13-2024 End: 10-13-2024 Patient encounter procedure Natalie Devin [facility]BL[facility]IRER-C -[facility] Work Phone: Start: 10-13-2024 End: 10-13-2024 ambulatory Natalie Devin Facility:[facility] Start: 09-05-2024 End: 09-05-2024 Patient encounter procedure Natalie Devin PRE ASSEMBLY WIRER-C -[facility] Work Phone: Start: 09-05-2024 End: 09-05-2024 Patient encounter status Natalie Beltran PRE ASSEMBLY WIRER-C [facility] Start: 09-05-2024 End: 09-05-2024 ambulatory Carter Rea MD Work Phone: [facility] Start: 03-20-2024 End: 03-20-2024 ambulatory Natalie Beltran Facility:[facility] Start: 02-25-2024 End: 02-25-2024 ambulatory Carter Rea Facility:[facility] Start: 03-16-2023 End: 03-16-2023 ambulatory [facility] Work Phone: Start: 03-16-2023 End: 03-16-2023 Patient encounter procedure [facility] Work Phone: Start: 08-26-2022 End: 08-26-2022 ambulatory PRE ASSEMBL[facility] WIRER-Meng Roger PRE ASSEMBLY WIRER Work Phone: [facility] Work Phone: Start: 08-26-2022 End: 08-26-2022 Patient encounter procedure PRE ASSEMBLY WIRER-Meng Roger NP Work Phone: [facility]-Outpatient Breast Imaging Work Phone: Start: 08-18-2022 End: 08-18-2022 Patient encounter procedure PRE ASSEMBLY WIRER-Meng Roger PRE ASSEMBLY WIRER Work Phone: [facility] Work Phone: Start: 05-23-2022 End: 05-23-2022 ambulatory [facility] Work Phone: Start: 05-23-2022 End: 05-23-2022 Patient encounter procedure [facility]Laboratory Start: 12-12-2021 Non-patient / Non-visit PRE ASSEMBLY WIRER-Meng Roger PRE ASSEMBLY WIRER Work Phone: [facility] Start: 12-12-2021 End: 12-12-2021 Admission to same day surgery center PRE ASSEMBLY WIRER-Meng Roger NP Work Phone: [facility]-Endoscopy Start: 12-12-2021 End: 12-12-2021 ambulatory PRE AS[facility]BL[facility] WIRER-C Suzanna Roger NP Work Phone: [facility] Work Phone: Start: 11-14-2021 End: 11-14-[address] Edilberto White Work Phone: [facility] Work Phone: Start: 11-14-2021 End: 11-14-[address] Edilberto White Work Phone: [facility]-Laboratory, [facility] Start: 11-07-2021 Non-patient / Non-visit Dr. Isatu White Work Phone: [facility] Start: 09-12-2021 End: 09-12-[address] Edilberto White Work Phone: [facility] Start: 09-04-2021 End: 09-04-[address] Edilberto White Work Phone: [facility]-Laboratory, Specimen Start: 09-04-2021 End: 09-04-[address] Edilberto White Work Phone: [facility] Start: 08-27-2021 End: 08-27-[address] [facility] White [facility] Start: 08-19-2021 End: 08-19-[address] Edilberto White Work Phone: [facility]-Outpatient Breast Imaging Start: 08-13-2021 End: 08-13-[address] Edilberto White Work Phone: [facility] Procedures Date Procedure Procedure Detail Performing Clinician Start: 10-19-2024 Mammography Carter renee MD Work Phone: Start: 10-19-2024 Ultrasonography of breast Carter Rea MD Work Phone: Start: 10-13-2024 Screening mammography Meng Rea MD Work Phone: Start: 03-16-2023 MRI of bilateral abhijit asts with contrast Start: 08-25-2022 Screening mammography N P-[facility] Suzanna Roger PRE ASSEMBLY WIRER Work Phone: Start: 12-12-2021 Colonoscopy PRE ASSEMBLY WIRER-C Jessi Roger PRE ASSEMBLY WIRER Work Phone: Start: 09-12-2021 MRI of bilateral abhijit asts with contrast Dr. Edilberto White Work Phone: Start: 08-27-[address] Avery White Work Phone: Start: 08-27-[address] Edilberto White Work Phone: Start: 08-19-2021 Screening mammography Renee White Work Phone: Plan of Treatment Date Care Activity Detail Author Start: 12-12-2021 Patient discharge [place] [facility] Work Phone: Start: 08-13-2021 Patient referral [facility] Work Phone: Colonoscopy [facility] Work Phone: Patient referral [facility] Work Phone: Payers Date Payer Category Payer Unknown [id number] 2024 Medicare [id number] 27e [id number] 2024 Self-pay [id number] Unknown [id number] Unknown [id number] Unknown [id number] 2.16.8 [id number] Unknown [id number] 2.16.8 [id number] Unknown [id number] 2.16.8 [id number] Unknown [id number] 2.16.8 [id number] Unknown [id number] 2.16.8 [id number] Social History Date Type Detail Facility Start: 08-13-2021 End: 08-18-2022 Tobacco smoking status NHIS Unknown if ever smoked [facility] Start: 1955 Sex Assigned At Female [facility] Start: 08-18-2022 Tobacco smoking stat us NHIS Never smoked tobacco (finding) [facility] Sex Female [facility] Goals Date Patient Goal Desired Activity /State Mental Status Date Assessment Result Facility 12-12-2021 Cognitive function Touch/Shaking [facility] Work Phone: Clinical Notes 09-05-2024 to 10-19-2024 Note Date & Type Note Facility 10-19-2024 Radiology Diagnostic study note [facility] Services [address] [place] [address] 14069 Breast Limited Unilateral MR#: [id number] Acct: [id number] Name: FRAN SHEARER Rep #: [id number] : 1955 F 69 From: Kade Person MD PCP: Dr. Carter Rea MD Status: REG CL I Study:Breast Limited Unilateral Date of Exam: 10/19/24 Exam# [id number] Ordering Dr: Natalie Beltran PRE ASSEMBLY WIRER PRE ASSEMBLY WIRER-C PROCEDURE: BREAST LIMITED UNILATERAL 10/19/2024 REASON FOR EXAM: F, Age 69 y/o , ABN MAMM. Abnormal screening mammogram. COMPARISON: Prior mammogram done earlier in the day.. TECHNIQUE: Procedure Code: USBRSTLIMIT Modality: US Procedure: BREAST LIMITED UNILATERAL. The upper-outer quadrant of the left breast was examined with ultrasound. FINDINGS: There is a 7 mm x 4 mm x 3 mm cyst at the 1 o'clock position of the breast at 4 cm from the nipple. US/Breast Limited Unilateral IMPRESSION: 7 mm x 4 mm x 3 mm cyst at the 1 o'clock position of the breast at 4 cm from thenipple. BI-RADS 2: BENIGN RECOMMENDATION: Routine annual follow-up in 1 Year Reading Location: [id number] CC: DANYA Beltran; Dr. Carter Rea MD ~ Triage Specialist: Signed [facility] 09-05-2024 Evaluation note Diagnosis Onset Date Resolution Atrophic vaginitis acute August 092024 2:37pm Encounter for routine gynecological examination noneactive September 05, 2024 2:37pm [facility] Work Phone: [phone]) 568-391507-29-2025 [facility] [address], [address] [place] [address] OFFICE VISIT Date of Service: 09/05/24 MR#: [id number] Acct: [id number] Name: FRAN SHEARER Rep #: [id number] : 1955 Provider: DANYA Beltran Age/Sex: 69/F Location: [facility] Status: Signed Intake Vital Signs 08/31/23 15:29 09/05/24 14:38 09/05/24 14:43 Height 5 ft 1 in 5 ft 1 in 5 ft 1 in Weight: 141 lb 2 oz BMI 26.6 BP 128/72 H Intake Visit Reasons: Annual (RN DOCUMENT IMPROVEMENT) Chief Complaint: Annual Deep Tissue Massage Therapist Required: No Is patient in pain?: No Allergies lisinopril Adverse Reaction (Intermediate, Verified 09/05/24 14:51) Chest tightness Medications ?Medication ?Instructions ?Recorded ?Confirmed ?Type hydrochlorothiazide 25 mg tablet 25 mg PO DAILY HTN 90 days ##90 04/13/17 09/05/24 History levothyroxine 50 mcg tablet 50 mcg PO DAILY THYROID 90 days 04/13/17 09/05/24 History ##90 mecobalamin (vitamin B12) 1,000 1,000 mcg sublingual Q DAY 04/13/17 09/05/24 History mcg disintegrating tablet,sublingual calcium citrate 200 mg PO Q4D SUPPLEMENT 09/05/24 History zinc 50 mg tablet 50 mg PO Q4D SUPPLEMENT 07/1009/05/24 History biotin 1 mg capsule 1 mg PO DAILY 08/13/2109/05 History ferrous sulfate 325 mg (65 mg 325 mg PO .q 4 days 07/3009/05/24 History iron) tablet (Feosol) losartan 25 mg tablet 25 mg PO DAILY HTN 08/13/21 09/05/24 History magnesium chloride 64 mg 250 mg PO DAILY SUPPLEMENT 0 08/13/21 09/05/24 History (magnesium chloride) tablet multivitamin,[id number] 1 tab PO .q 4 days 08/1309/05/24 History (Complete Multivitamin tablet) estradiol 0.01% (0.1 mg/gram) See Rx Instructions vagi nal 02/15/24 09/05/24 Rx vaginal cream .COMPLEX #42.5 grams Is last menstrual period known: No Post menopausal: Yes Patient : No : No PFSH Medical History Thickened endometrium Wears glasses Post-menopausal Arthritis Easy bruising Difficulty swallowing Leg cramps Non-smoker Hypothyroid HTN (hypertension) Surgical History History of colonoscopy H/O tubal ligation History of D&C Family History Father Diabetes Mother Hypertension Cancer gallbladder Grandfather Diabetes Aunt Cancer gallbladder Aunt Cancer multiple myeloma Sister Cancer renal Unknown Breast cancer associated with mutation in ENRIKE gene Social History Smoking Status: Never smoker second hand exposure: No alcohol intake: never what type of physical activity do you participate in: none additional social history: [employer] History 3 Elective abortions Hx Para 3 Spontaneous abortions Hx # Term Pregnancies Ectopic pregnancies Hx # Pregnancies Multiple births # of living children Past Pregnancies Del. Date Name GA/Weeks Outcome Route Bth Weight Gen Labor Lgth Anesthesia Del Locatn Provider FOB 07/26/77 Remi 09/13/80 Melina 07/12/86 [place] HPI Encounter for routine gynecological examination Details: FRAN SHEARER is a 69 year old who presents for annual exam. Denies concerns Last PAP: NA History of abnormal PAP: no Last mammogram: 09/2023. MRI 03/2024; alternates Q6mo History of abnormal mammogram: no Colon cancer screenin. Q5yr Other preventative health care screenings: Rona Female Reproductive History Questions: metorrhagia: No, sexually active: Yes, dyspareunia: No and PCB: No ROS Const Constitutional: Denies fatigue, weight gain or weight loss Cardio Card: Denies chest pain Resp Resp: Denies cough or dyspnea on exertion GI GI: Denies abdominal pain, bloating, change in stool character, constipation or vomiting : Reports as per HPI; Denies difficulty voiding, pelvic pain, urinary frequency, urinary incontinence,urinary urgency, vaginal discharge or vaginal pruritus Exam Const General: cooperative, healthy appearing, no acute distress and well developed Orientation: alert, oriented to person and oriented to place HENMT Head: normal to inspection Neck Neck: normal visual inspection Thyroid: thyroid normal Lymphatic: no lymphadenopathy noted Chest Breast inspection: normal inspection of the breasts and normal inspection of theaxillae Breast palpation: normal palpation of the breasts, normal palpation of the axillae and no axillary lymphadenopathy Resp Effort & Inspection: normal respiratory effort GI Palpation: soft, no masses and nontender Rectal Exam: deferred External Female Exam: normal external appearance Urethra: other (pale and slightly dilated) Speculum Exam - Vagina: normal vaginal discharge and vagina atrophic (improving,pale pink) Speculum Exam - Cervix: normal appearance of the cervix Bimanual Exam- Vagina & Uterus: normal bimanual exam, uterine size normal, uterine shape normaland non-tender Bimanual Exam- Adnexa, other: normal adnexae, no masses, normal and non-tender Pelvic Support: normal Neuro General: patient alert and patient oriented x3 Psych Affect: normal affect Coding Level of Care Code Pelvic/Breast Diagnoses Encounter for gynecological examination with abnormal finding Z01.411 Gynecological examination findings: abnormal findings PRESENT Atrophic vaginitis N95.2 Assessment and Plan Assessment and Plan (1) Encounter for routine gynecological examination: Qualifiers: Gynecological examination findings: abnormal findings PRESENT QualifiedCode(s): Z01.411 - Encounterfor gynecological examination (general) (routine) with abnormal findings (2) Atrophic vaginitis: Status: Acute Comment: estradiol cream Plan Completed breast and pelvic exam Reviewed diet and exercise Pap na Mammogram ordered breast self exam encouraged monthly Continue estradiol cream twice a week. Does not need refills Colonoscopy 2021 Bone density with PCP RTO 1 year, prn with problems Natalieellis Beltran MILLINERY WORKER 09/05/24 1500 s PRE ASSEMBLY WIRER PRE ASSEMBLY WIRER-C> Date _ Natalie Krafts PRE ASSEMBLY WIRER PRE ASSEMBLY WIRER-C Cosigner Signature: Date (if applicable) CC: ~ [facility]07-29-2025 Progress note Author Natalie Devin [facility] Note Date/Time September 05, 2024 3:00 pm [facility] [address], [address] [place] [address] OFFICE VISIT Date of Service: 09/05/24 MR#: [id number] Acct: [id number] Name: FRAN SHEARER Rep #: [id number] : 1955 Provider: DANYA Beltran Age/Sex: 69/F Location: [facility] Status: Signed Intake Vital Signs 08/31/23 15:29 09/05/24 14:38 09/05/24 14:43 Height 5 ft 1 in 5 ft 1 in 5 ft 1 in Weight: 141 lb 2 oz BMI 26.6 BP 128/72 H Intake Visit Reasons: Annual (RN DOCUMENT IMPROVEMENT) Chief Complaint: Annual Deep Tissue Massage Therapist Required: No Is patient in pain?: No Allergies lisinopril Adverse Reaction (Intermediate, Verified 09/05/24 14:51) Chest tightness Medications ?Medication ?Instructions ?Recorded ?Confirmed ?Type hydrochlorothiazide 25 mg tablet 25 mg PO DAILY HTN 90 days ##90 04/13/17 09/05/24 History levothyroxine 50 mcg tablet 50 mcg PO DAILY THYROID 90 days 04/13/17 09/05/24 History ##90 mecobalamin (vitamin B12) 1,000 1,000 mcg sublingual Q DAY 04/13/17 09/05/24 History mcg disintegrating tablet,sublingual calcium citrate 200 mg PO Q4D SUPPLEMENT 09/05/24 History zinc 50 mg tablet 50 mg PO Q4D SUPPLEMENT 07/1009/05/24 History biotin 1 mg capsule 1 mg PO DAILY 08/13/2109/05 History ferrous sulfate 325 mg (65 mg 325 mg PO .q 4 days 07/3009/05/24 History iron) tablet (Feosol) losartan 25 mg tablet 25 mg PO DAILY HTN 08/13/21 09/05/24 History magnesium chloride 64 mg 250 mg PO DAILY SUPPLEMENT 0 08/13/21 09/05/24 History (magnesium chloride) tablet multivitamin,un-egob-ixgfllgu 1 tab PO .q 4 days 08/1309/05/24 History (Complete Multivitamin tablet) estradiol 0.01% (0.1 mg/gram) See Rx Instructions vagi nal 02/15/24 09/05/24 Rx vaginal cream .COMPLEX #42.5 grams Is last menstrual period known: No Post menopausal: Yes Patient : No : No PFSH Medical History Thickened endometrium Wears glasses Post-menopausal Arthritis Easy bruising Difficulty swallowing Leg cramps Non-smoker Hypothyroid HTN (hypertension) Surgical History History of colonoscopy H/O tubal ligation History of D&C Family History Father Diabetes Mother Hypertension Cancer gallbladder Grandfather Diabetes Aunt Cancer gallbladder Aunt Cancer multiple myeloma Sister Cancer renal Unknown Breast cancer associated with mutation in ENRIKE gene Social History Smoking Status: Never smoker second hand exposure: No alcohol intake: never what type of physical activity do you participate in: none additional social history: Spruik History 3 Elective abortions Hx Para 3 Spontaneous abortions Hx # Term Pregnancies Ectopic pregnancies Hx # Pregnancies Multiple births # of living children Past Pregnancies Del. Date Name GA/Weeks Outcome Route Bth Weight Gen [facility] Remi 09/13/80 Melina 07/12/86 Negra HPI Encounter for routine gynecological examination Details: FRAN SHEARER is a 69 year old who presents for annual exam. Denies concerns Last PAP: NA History of abnormal PAP: no Last mammogram: 09/2023. MRI 03/2024; alternates Q6mo History of abnormal mammogram: no Colon cancer screenin. Q5yr Other preventative health care screenings: Rona Female Reproductive History Questions: metorrhagia: No, sexually active: Yes, dyspareunia: No and PCB: No ROS Const Constitutional: Denies fatigue, weight gain or weight loss Cardio Card: Denies chest pain Resp Resp: Denies cough or dyspnea on exertion GI GI: Denies abdominal pain, bloating, change in stool character, constipation or vomiting : Reports as per HPI; Denies difficulty voiding, pelvic pain, urinary frequency, urinary incontinence,urinary urgency, vaginal discharge or vaginal pruritus Exam Const General: cooperative, healthy appearing, no acute distress and well developed Orientation: alert, oriented to person and oriented to place HENNJ Head: normal to inspection Neck Neck: normal visual inspection Thyroid: thyroid normal Lymphatic: no lymphadenopathy noted Chest Breast inspection: normal inspection of the breasts and normal inspection of theaxillae Breast palpation: normal palpation of the breasts, normal palpation of the axillae and no axillary lymphadenopathy Resp Effort & Inspection: normal respiratory effort GI Palpation: soft, no masses and nontender Rectal Exam: deferred External Female Exam: normal external appearance Urethra: other (pale and slightly dilated) Speculum Exam - Vagina: normal vaginal discharge and vagina atrophic (improving,pale pink) Speculum Exam - Cervix: normal appearance of the cervix Bimanual Exam- Vagina & Uterus: normal bimanual exam, uterine size normal, uterine shape normal and non-tender Bimanual Exam- Adnexa, other: normal adnexae, no masses, normal and non-tender Pelvic Support: normal Neuro General: patient alert and patient oriented x3 Psych Affect: normal affect Coding Level of Care Code Pelvic/Breast Diagnoses Encounter for gynecological examination with abnormal finding Z01.411 Gynecological examination findings: abnormal findings PRESENT Atrophic vaginitis N95.2 Assessment and Plan Assessment and Plan (1) Encounter for routine gynecological examination: Qualifiers: Gynecological examination findings: abnormal findings PRESENT QualifiedCode(s): Z01.411 - Encounter for gynecological examination (general) (routine) with abnormal findings (2) Atrophic vaginitis: Status: Acute Comment: estradiol cream Plan Completed breast and pelvic exam Reviewed diet and exercise Pap na Mammogram ordered breast self exam encouraged monthly Continue estradiol cream twice a week. Does not need refills Colonoscopy 2021 Bone density with PCP RTO 1 year, prn with problems Natalie Beltran CNP 09/05/24 1500 <Electronically signed by Natalie pantoja PRE ASSEMBLY WIRER PRE ASSEMBLY WIRER-C> Date _ Natalie Beltran PRE ASSEMBLY WIRER PRE ASSEMBLY WIRER-C Cosigner Signature: Date (if applicable) CC: ~ [facility] [employer] Work Phone: Evaluation note* Diagnosis Onset Date Resolution Status Family history of cancer acu te Family history of gene mutation acute Gene mutation acute Encounter for routine gynecological examination noneactive [facility] Work Phone: Evaluation note* Diagnosis Onset Date Resolution Status Family history of cancer acu te Family history of gene mutation acute Gene mutation acute Encounter for routine gynecological examination noneactive Family history of cancer acu te Gene mutation acute Thickened endometrium acute [facility] Work Phone: Evaluation note* Diagnosis Onset Date Resolution Status Family history of cancer acu te Gene mutation acute Thickened endometrium acute Encounter for screening for malignant neoplasm of colo n acute [facility] Work Phone: Evaluation noteNo assessment information available [facility] Work Phone: Evaluation note* Diagnosis Onset Date Resolution Status Atrophic vaginitis acute Family history of cancer acu te Family history of gene mutation acute Gene mutation acute Urinary incontinence due to urethral sphincter incompetence acute Encounter for routine gynecological examination noneactive [facility] Work Phone: Evaluation note* Diagnosis Onset Date Resolution Status Admit Date Encounter for routine gynecological examination noneactive August 092024 2:37pm [facility]: [facility] Work Phone: Reason for referral (narrative)No reason for referral [facility] Work Phone: Chief Complaint and Reason for Visit Chief Complaint Annual (RN DOCUMENT IMPROVEMENT) SCREENING Reason for Visit Family history of ca ncer Family history of gene mutation Gene mutation Encounter for routine gynecological examination Chief Complaint Annual (RN DOCUMENT IMPROVEMENT) SCREENING HX OF CA Reason for Visit Family history of ca ncer Family history of gene mutation Gene mutation Encounter for routine gynecological examination Chief Complaint Annual (RN DOCUMENT IMPROVEMENT) SCREENING HX OF CA EMB EMB Reason for Visit Family history of ca ncer Family history of gene mutation Gene mutation Encounter for routine gynecological examination Family history of cancer Gene mutation Thickened endometrium Chief Complaint Annual (RN DOCUMENT IMPROVEMENT) SCREENING HX OF CA EMB EMB HX OF BREAST CA Reason for Visit Family history of ca ncer Family history of gene mutation Gene mutation Encounter for routine gynecological examination Family history of cancer Gene mutation Thickened endometrium Chief Complaint Annual (RN DOCUMENT IMPROVEMENT) SCREENING HX OF CA EMB EMB HX OF BREAST CA Amb Documentation EORDER Reason for Visit Family history of ca ncer Family history of gene mutation Gene mutation Encounter for routine gynecological examination Family history of cancer Gene mutation Thickened endometrium Chief Complaint SCREENING HX OF CA EMB EMB HX OF BREAST CA Amb Documentation EORDER Reason for Visit Family history of ca ncer Gene mutation Thickened endometrium Encounter for screening for malignant neoplasm of colon Chief Complaint Annual (RN DOCUMENT IMPROVEMENT) SCREENING Reason for Visit Atrophic vaginitis Family history of cancer Family history of gene mutation Gene mutation Urinary incontinence due to urethral sphincter incompetence Encounter for routine gynecological examination Chief Complaint YEARLY MRI GENE MUTA TION Chief Complaint Admit Date Annual (RN DOCUMENT IMPROVEMENT) September 05, 2024 2:37 pm Reason for Visit Admit Date Encounter for routine gynecological exam ination September 05, 2024 2:37pm Chief Complaint Admit Date Annual (RN DOCUMENT IMPROVEMENT) September 05, 2024 2:37 pm SCREENING October 13, 2024 10:23am Other abnormal and inconclusive findings on diagno October 19, 2024 12:57pm Reason for Visit Admit Date Atrophic vaginitis September 05, 2024 2:37 pm Encounter for routine gynecological exam ination September 05, 2024 2:37pm Family History No Family History Records Found Relationship Condition Age at Onset Recorded Date/T kandice father Diabetes mellitus Unknown mother Hypertension Unknown Malignant neoplasm Unknown grandfather Diabetes mellitus Unknown aunt Malignant neoplasm Unknown sister Malignant neoplasm Unknown Relationship Condition Age at Onset Recorded Date/T kandice father Diabetes mellitus Unknown mother Hypertension Unknown Malignant neoplasm Unknown grandfather Diabetes mellitus Unknown aunt Malignant neoplasm Unknown sister Malignant neoplasm Unknown Not Specified Malignant neoplasm o f breast associated with mutation in ENRIKE gene Unknown Relationship Condition Age at Onset Recorded Date/T kandice father Diabetes mellitus Unknown mother Hypertension Unknown Malignant neoplasm Unknown grandfather Diabetes mellitus Unknown aunt Malignant neoplasm Unknown sister Malignant neoplasm Unknown unrelated friend Malignant neoplasm o f breast associated with mutation in ENRIKE gene Unknown Advance Directives No Advanced Directives Records Found Advance Directive Response Recorded Date/ Time Living Will No December 08 4:11pm Power of Bladder Blower No December 08, 2021 4:11pm Advance Directive Response Recorded Date/ Time Living Will No December 08 3:11pm Power of Bladder Blower No December 08, 2021 3:11pm Summary Purpose Additional Source Comments Goals (unrecognized section and content) Goals may be documented in a n alternate sectionGoals may be documented in an alternate sectionGoals may be documented in an alternate sectionGoals may be documented in an alternate sectionGoals may be documented in an alternate sectionGoals may be documented in an alternate sectionGoals may be documented in an alternate sectionGoals may be documented in an alternate sectionGoals may be documented in an alternate sectionGoals may be documented in an alternate sectionGoals may be documented in an alternate section Care Teams (unrecognized sec tion and content) Team Status: Active Member Role Status Dates Dr. Edilberto White MD Family Provider Active DANYA Tim Primary Care Provider Melvi grant Team Status: Inactive Member Role Status Dates Agnes Stathopoulos , PRE ASSEMBLY WIRER-C Primary Care Provider, Attending Provider, Referring Provider Active Team Status: Inactive Member Role Status Dates Suzanna Roger PRE ASSEMBLY WIRER, PRE ASSEMBLY WIRER-C Referring Provider Active Natalie Beltran PRE ASSEMBLY WIRER, PRE ASSEMBLY WIRER-C Attending Provider Active Agnes Stathopoulos , PRE ASSEMBLY WIRER-C Primary Care Provider Acti ve Team Status: Inactive Member Role Status Dates Agnes Mac , PRE ASSEMBLY WIRER-C Primary Care Provider Acti ve Natalie Beltran PRE ASSEMBLY WIRER, PRE ASSEMBLY WIRER-C Attending Provider, Referring Provider Active Team Status: Active Member Role Status Dates Dr. Edilberto White MD Family Provider Active Cydney Loyola DO Primary Care Provider Active Team Status: Inactive Member Role Status Dates Natalie Beltran PRE ASSEMBLY WIRER, PRE ASSEMBLY WIRER-C Attending Provider, Referring Provider Active Cydney Loyola DO Primary Care Provider Active Team Status: Active Member Role/Relationship Status Dates Carter Rea MD Primary Care Provider Active Team Status: Inactive Member Role/Relationship Status Dates Carter Rea MD Primary Care Provider Active St art: September 05, 2024 End: September 05, 2024 Carter Rea MD Referring Provider Active Start : September 05, 2024 End: September 05, 2024 Natalie Beltran PRE ASSEMBLY WIRER, PRE ASSEMBLY WIRER-C Attending Provider Active Start: September 05, 2024 End: September 05, 2024 Team Status: Active Member Role/Relationship Status Nabor Rea MD Primary care physician Active Team Status: Inactive Member Role/Relationship Status Nabor Rea MD Primary care physician Active S tart: September 05, 2024 End: September 05, 2024 Carter Rea MD Referring Provider Active Start : September 05, 2024 End: September 05, 2024 Natalie Beltran PRE ASSEMBLY WIRER, PRE ASSEMBLY WIRER-C Attending physician Active Start: September 05, 2024 End: September 05, 2024 Team Status: Inactive Member Role/Relationship Status Nabor Rea MD Primary care physician Active S tart: October 13, 2024 End: October 13, 2024 Natalie Beltran PRE ASSEMBLY WIRER, PRE ASSEMBLY WIRER-C Attending physician Active Start: October 13, 2024 End: October 13, 2024 Natalie Beltran PRE ASSEMBLY WIRER, PRE ASSEMBLY WIRER-C Referring Provider Active Start: October 13, 2024 End: October 13, 2024 Team Status: Inactive Member Role/Relationship Status Dates Carter Rea MD Primary care physician Active S tart: October 19, 2024 End: October 19, 2024 DANYA Cross NP Attending physician Active Start: October 19, 2024 End: October 19, 2024 DANYA Cross NP Referring Provider Active Start: October 19, 2024 End: October 19, 2024 INFORMATION SOURCE (unrecogn ized section and content) DATE CREATED AUTHOR 11/11/2024 [facility] FOR RECORDS PERTAINING TO PATIENTS WHO ARE OR HAVE BEEN ENROLLED IN A CHEMICAL DEPENDENCY/SUBSTANCEABUSE PROGRAM, SOME INFORMATION MAY BE OMITTED. This clinical summary was aggregated from multiple sources. Caution should be exercised in using it in the provision of clinical care. This summary normalizes information from multiple sources, and as a consequence, information in this document may materially change the coding, format and clinical context of patient data. In addition, data may be omitted in some cases. CLINICAL DECISIONS SHOULD BE BASED ON THE PRIMARY CLINICAL RECORDS. [employer] provides no warranty or guarantee of the accuracy or completeness of information in this document.
[2024-11-28 22:05] LABS: AST(SGOT) 19 U/L (<=31); Alanine Aminotransfer ALT/SGPT 11 U/L (<=34); Albumin, Serum 4.3 g/dL (3.4-4.8); Alkaline Phosphatase 71 U/L (35-104); Anion Gap 11 (5-15); BUN 12 mg/dL (4-19); BUN/Creat Ratio 18.4 RATIO (10-20); Calcium,Total 9.4 mg/dL (7.6-11.0); Carbon Dioxide 26.6 mmol/L (21.0-32.0); Chloride 96 mmol/L (98-108); Cholesterol 196 mg/dL (<=200); Globulin 2.7 g/dL (2.2-4.2); Glucose 99 mg/dL (70-99); Low Density Lipoprotein Calc. 99 mg/dL; Potassium 3.3 mmol/L (3.3-5.1); Triglycerides 132 mg/dL; Very Low Density Lipoprotein 26 mg/dL (5-40); Vitamin D,25 Hydroxy 28.8 ng/mL (30-100); cholesterol:hdl ratio screen 2.64
[2024-11-28 22:36] LABS: Hematocrit 35.0 % (37-47); Hemoglobin 12.0 g/dL (12.0-15.0); Mean Corp Hgb Conc 34.3 g/dL (32-36); Mean Corpuscular Volume 87.9 fL (81-99); Mean Platelet Vol. 10.4 fl (6.2-12.0); Platelet Count 249 K/mm3 (150-450); RBC Distribution Width CV 12.5 % (11.6-14.6); RBC Distribution Width SD 40.4 fl (35.1-43.9); Red Blood Count 3.98 M/mm3 (4.2-5.4); White Blood Count 4.2 K/mm3 (4.4-11.0)
== END | disposition home or self-care (01) ==
PROVIDERS: PCP Family Medicine; Visit Provider Family Medicine
DX: E03.9 Hypothyroidism, unspecified (principal); R73.01 Impaired fasting glucose; I10 Essential (primary) hypertension; Z13.220 Encounter for screening for lipoid disorders
CPT/HCPCS: 36415; 80053; 80061; 82306; 84443; 85027

== ENCOUNTER 2025-01-03 16:00 | Outpatient (RCR) | payer MEDICARE, OTHER, SELFPAY ==
--- NOTE | 2024-12-11 17:05 | HP.PTEVAL_ITS ---
Patient's Visit Information Visit Information Visit Information: FRAN SHEARER is a 69 year old F referred to Physical Therapy by Carter Rea MD with a diagnosis of RIGHT BICEPS STRAIN. Date of Evaluation: 12/11/24 Physical Therapist: Devyn Gold PT, Cert MDT, OCS Visit Plan Frequency: 2x /Week Duration: 4 Weeks Plan: PT INTERVENTIONS POSTURAL EX' S,FLEXABILITY ,ANR RUE ,STRENGTHENING MANUAL THERAPY AND ,MODALITIES PRN Subjective Subjective: This 69 y/o female presents to physical therapy with right bicep strain. Patient c/o right bicep for many years and symptoms worse past several weeks . Seen DR cuevas PT. No imaging . Patient pain located in biceps occasional shoulder pain. Patient has no cervical pain. Aggravating factors worse at night ,lifting ,. No pain with raising arm or moving arm . At night patient wakes up with arm pinching. Patient has paresthesia/tingling in hands. No injury . Symptoms affects sleeping. No medication. Symptoms don't affect ADLS and housework . Patient condition affects QOL and function. Patient goals to sleep through ut night, SOCAIL: VOCATION: retired Pain Right Elbow: Pain Intensity (Out of 10): 1 Pain Intensity Range: 9 Comment: biceps Objective Objective: POSTURE: mild forward posture PALAPTION: tender 1ST Rib NEURO: c/o paresthesia/tingling right hand ,reflexes C5-6-7 2/3 + ANR right UE CERVICAL ROM:WFL Flexion ,extension/lateral flexion /rotation 25% loss MMT: RTC ,4/5 ,Biceps 4/5 ,deltoid 4/5 ,wrist 4/5 Special Tests C/S Radiculapathy - Left Upper limb tension test: Positive C/S Radiculapathy - Right Upper limb tension test: Negative C/S Radiculapathy - Left Spurlings: Negative C/S Radiculapathy - Right Spurlings: Negative C/S Radiculapathy - Left Cervical distraction: Negative C/S Radiculapathy - Right Cervical distraction: Negative C/S Radiculapathy - Left Relief test: Negative C/S Radiculapathy - Right Relief test: Negative Sharp Andrade: Negative Vertebral Artery Test: Negative Alar Ligament Test: Negative R Shoulder External Rotation Lag Test - RC Tear: Negative R Shoulder Drop Sign - IS Test: Negative R Shoulder Neer - Impingement: Negative R Shoulder Sterling Yoan - Impingement: Negative R Shoulder Biceps Load Test - Labrum: Negative R Shoulder Yeargasons - SLAP: Negative R Shoulder O'Briens - SLAP/A-C: Negative R Shoulder Apprehension/Relocaton - SLAP: Negative R Elbow Flexion Test - Cubital Tunnel: Negative R Elbow Valgus Stress Test - MCL Instability: Negative R Elbow Varus Stress Stest - MCL Instability: Negative R Elbow Lat Epiconylitis - as named: Negative Balance/Special Test Scores Quick DASH Score: 50.0000 Goals Goal 1:: Patient to be I with HEP to manage symptoms Goal Time Frame: 4-6 Weeks Goal 2:: Patient to improve symptoms in arm by 50% especially at night sleeping Goal Time Frame: 4-6 Weeks Goal 3:: Patient to quick dash by 5 points to improve QOL Goal Time Frame: 4-6 Weeks Goal 4:: Patient to resolve symptoms in right arm with stretching and postural ex's Goal Time Frame: 4-6 Weeks Rehabilitation Potential Physical Therapy Diagnosis: This patient has right UE paresthesia/tingling in hand seems to be ANR vs thoracic outlet maybe CTS,no pain with RTC testing ,bicep negative ,cervical test negative thus will benefit from skilled PT Rehabilitation Potential: Good Anticipated Interventions Patient/Client Instruction: Educate patient on: Condition and Plan of Care For the Purpose of:: To decrease pain, To improve muscle performance and motor function, To improve ability to perform ADL's, To increase tolerance to activity/condition/position, To improve ability of physical actions for home/community/work/leisure, To improve gait and locomotor functions, To decrease soft tissue restriction, To increase flexibility/ROM, To prevent re- injury and To improve tolerance to ADL's Therapeutic Exercise to Include: Strength training, Postural training, Flexibilty training and Scapular Strength/Stabilization Comment: RUE For the Purpose of:: To decrease pain, To increase ROM, To improve muscle performance and motor function, To improve ability to perform ADL's, To increase tolerance to activity/condition/position, To improve ability of physical actions for home/community/work/leisure, To improve health of tissue, To decrease soft tissue restriction, To increase flexibility/ROM and To improve tolerance to ADL's Manual Therapy Techniques to Include: Mobilization Comment: 1ST RIB For the Purpose of:: To decrease pain and To increase ROM TENS: Yes IF ES: Yes Thermo therapy (hot pack): Yes Ultrasound (thermal/non thermal): Yes For the Purpose of:: To decrease pain, To decrease swelling/inflammation, To improve nutrient delivery to tissue and To increase oxygenation perfusion Text: Thank you for the opportunity to evaluate your patient. For Medicare and Medicare HMO plans, please review the plan of care and approve it. It will need to be FAXED BACK to us at [phone] for Medicare purposes. For Medicare only, by signing this I certify the plan of care. Please let me know if there are questions or concerns regarding this plan of care. Physician Signature: Date:
--- NOTE | 2025-01-03 16:35 | HP.PTDCSUM ---
Discharge Summary D/C summary: It has been my pleasure to treat FRAN SHEARER referred by Carter Rea MD, with the diagnosis of RIGHT BICEPS STRAIN for a total of 7 visit(s). Discharge Date: Please see the following information for a summary of their discharge status. Subjective Subjective: Conts to have tingling then numbness in hands right when using hand -grasping Better in shoulder Pain Right Elbow: Pain Intensity (Out of 10): 2 Overall Improvement % Improvement: 50 Objective Objective/Function: POSTURE: mild forward posture PALAPTION: tender 1ST Rib NEURO: c/o paresthesia/tingling right hand ,reflexes C5-6-7 2/3 + ANR right UE CERVICAL ROM:WFL Flexion ,extension/lateral flexion /rotation 25% loss MMT: RTC ,4/5 ,Biceps 4/5 ,deltoid 4/5 ,wrist 4/5 Special Tests phalens test + possible CTS Goals Goal 1:: Patient to be I with HEP to manage symptoms Goal Progress: Goal Met Goal 2:: Patient to improve symptoms in arm by 50% especially at night sleeping Goal Progress: Progressing Goal 3:: Patient to quick dash by 5 points to improve QOL Goal Progress: Progressing Goal 4:: Patient to resolve symptoms in right arm with stretching and postural ex's Goal Progress: Progressing Plan Plan: D/C TO HEP AND RTD MAY BENEFIT FROM EMG TEST D/C Information d/c sentence: If there are questions or concerns regarding this patient's physical therapy, please feel free to call me at [phone]. Thank you for the referral of this patient. Sincerely, Devyn Gold, PT, Cert MDT, OCS Balance/Gait/Functional tests Balance/Special Test Scores Quick DASH Score: 20.4525 Improvement % Improvement: 50
== END 2025-01-03 19:00 | disposition home or self-care (01) ==
LOC: PT 16:00
PROVIDERS: PCP Family Medicine; Referring Provider Family Medicine; Visit Provider Family Medicine
DX: S46.211D Strain of muscle, fascia and tendon of other parts of biceps, right arm, subsequent encounter (principal)
CPT/HCPCS: 97110; 97162